=== PATIENT | male | born 1975 | race Caucasian/White ===

== ENCOUNTER 2025-03-30 03:20 | Day surgery (SDC) | payer OTHER, SELFPAY ==
[2025-03-28 15:05] VITALS: BMI 32.5
--- OUTSIDE RECORDS SUMMARY | 2025-03-30 03:24 | XMS_ITS | Continuity of Care Document ---
Author Name [facility] Organization [facility] Care Team Providers Care General Internal Medicine Doctor Name Role Phone [facility] Unavailable Unavailable Problems Combined list of problems from 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 It does not include entries that were removed or entered in error. Problem Status Onset Date Problem Type Date of Resolution Comments Source Flank pain Active 025 Diagnosis 6130C-Af[facility] Localized swelling, mass and lump, neck Active 025 Diagnosis -[facility] Other melanin hyperpigmentation Active 025 Diagnosis 5C[facility] Screening for malignant neoplasm of large intestine not done Active 025 Diagnosis 6[facility]C-Af[facility] Lipoma of head Active 025 Diagnosis 6[facility]C-Af[facility]C- [facility] Flank pain Active 025 Diagnosis 6130C-Af[facility]C- [facility] Dysphagia Active 025 Diagnosis 6130C-Af-C- [facility] Encounter for fitting and adjustment of spectacles and contact lenses Active 019 Condition DoD Keratoconus, stable, left eye Active 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 Member has completed no-go ground-testing of Ambien. Ambien 10 mg PO HS PRN, #5 issued, reviewed sleep hygiene and no-go policy Medication reconciled DoD CONJUNCTIVITIS ACUTE VERNAL Inactive Condition DoD SORE THROAT Inactive Condition DoD visit for: issue medical certificate Inactive Condition DoD EUSTACHIAN TUBE DYSFUNCTION Inactive Condition DoD OTITIS MEDIA ACUTE SEROUS RIGHT EAR Inactive Condition DoD OTITIS MEDIA RIGHT EAR Inactive Condition DoD VARICOCELE Active Condition DoD testicular pain Inactive Condition [facility] visit for: services physical pre-deployment Inactive Condition DoD ASTIGMATISM Active Condition DoD ORAL ALLERGY SYNDROME Inactive Condition DoD ANAPHYLAXIS - ADVERSE FOOD REACTION Inactive Condition DoD visit for: issue medical certificate fitness Inactive Condition DoD Anticipatory Guidance: Unsafe Sexual Practices Inactive Condition DoD ESOPHAGEAL REFLUX Active Condition DoD cough Inactive Condition DoD visit for: administrative purpose Inactive Condition DoD Patient Counseling: Inactive Condition Pt. education and counseling done DoD sore throat Inactive Condition recommen ded supportive care, use of medications as RX, avoid post nasal drip, call/return if sx.'s worsen DoD drip or drainage down throat from above Inactive Condition recommended supportive care, use of medications as RX, avoid post nasal drip, call/return if sx.'s worsen DoD NEOPLASM - SOFT TISSUE Inactive Condition DoD BRONCHITIS Inactive Condition viral vs bacterial; most sx resolving; given exposure to hospital will treat with abx. discussed hydration, rest, hand washing. entex and tessalon as rxed. RTC if noimprovement over 10 days. pt verbalizes udnerstanding. DoD MUSCLE SPASM Inactive Condition R trapeciuos/delto ids. Cyclobenzaprine DoD UPPER RESPIRATORY INFECTION Inactive Condition sx.'s improving -recommended supportive care, use of medications as RX, increase hydration and rest, call/return if sx.'s worsen DoD SINUSITIS Inactive Condition rx abx rx sudafed DoD PHARYNGITIS Inactive Condition DoD Overweight Inactive Condition advised w t. loss w/ diet control & exericises. monitor DoD Blood Pressure Isolated Elevated Inactive Condition Improved, Advised diet control, wt. loss, monitor & log in bp & s/sx's DoD ASTIGMATISM - REGULAR Active Condition DoD REFRACTIVE ERROR - MYOPIA Active Condition Acceptable CL a t last visit, and stable refraction showing decreased Rx. Rx given: OD -3.25/ -2.75 OS/8.6/14.0/Ultr aflex 2/Expires 1 year/2 week daily wear/No substitutions DoD Medications Combined list of outpatient medications from 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Medications provided include 1) outpatient medications from the last 15 months, and 2) patient-reported medications. Medication Details Route Status Patient Instructions Prescription Expires Prescription Number Last Dispense Date Ordering Provider Order Date Order Qty Source ALBUTEROL SULFATE HFA (albuterol sulfate), 90 MCG, HFA AER AD, INHALATION, [place], 8.5 g CANISTER ALBUTERO L SULFATE HFA (albuter ol sulfate) , 90 MCG, HFA AER AD, INHALATI ON, TEVA [place], 8.5 g CANISTER Start Date: 10/14/19 Stop Date: 05/14/21 Status: Complete d Repeat number: 1 Complet ed 05/14/20212020 No Facilit y Access amoxicillin -clavulanat e 875 mg-125 mg oral tablet 1 tab(s), Oral, every 12 hr, X 5 days, # 10 tab(s), 0 total refill(s ), Acute, 05/19/21 12:07:00 PM CDT, [facility]acy : [facility] Oral (given by mouth) Complet ed 05/19/2021 2020 10.0 0006C-[employer] Janette Parkinson [facility] azithromyci n 250 mg oral tablet 0 total refill(s ) Complet ed 05/14/20212020 No Facilit y Access clobetasol 0.05% topical foam 1 appl(s), Topical, Daily, # 110 g, 1 total refill(s ), [facility], Pharmacy : [facility] #[id number] Topica l (on the skin) Ordered 2023 110.0 6130C-A f-C-[facility] Jovanni cyclobenzap rine 10 mg oral tablet cycloben zaprine 10 mg oral tablet Start Date: 11/25/19 Stop Date: 05/14/21 Status: Complete d Repeat number: 1 Complet ed 05/14/20212020 No Facilit y Access cyclobenzap rine 5 mg oral tablet 1 tab(s), Oral, TID, PRN pain (moderat e), # 15 tab(s), 0 total refill(s ), Acute, Pharmacy : [facility] Oral (given by mouth) Complet ed 12/06/2024 04/15/202 4 2024 15.0 0055C-3 [facility] Jovanni cyclobenzap rine 5 mg oral tablet 1 tab(s), Oral, every day at bedtime, X 14 days, # 14 tab(s), 0 total refill(s ), Acute, Pharmacy : [facility] Oral (given by mouth) Ordered 04/04/20252024 14.0 6130C-A f[facility] Flexeril 5 mg oral tablet 1 tab(s), Oral, every day at bedtime, # 14 tab(s), 0 total refill(s ), Acute, Pharmacy : [facility] Oral (given by mouth) Complet ed 01/31/20252024 14.0 6130C[facility] f[facility] ibuprofen 800 mg oral tablet 1 tab(s), Oral, TID, PRN pain (moderat e), # 90 tab(s), 1 total refill(s ), Acute, 12/06/24 12:00:00 AM CDT, Pharmacy : [facility] Oral (given by mouth) Complet ed 12/06/2024 4 2024 90.0 0055C[facility]% topical patch 1 patch(es ), Topical, Daily, Leave on for up to 12 hours within a 24 hour period (12 hours on, 12 hours off). Can cut in half and apply to both flanks., # 30 patch(es ), 0 total refill(s ), Maintena ine, Pharmacy : [facility] Topica l (on the skin) Ordered 5 2024 30.0 6130C-A f-C-375 [facility] Jovanni phenylephri ne 10 mg oral tablet 1 tab(s), Oral, every 4 hr, PRN congesti on, # 18 tab(s), 0 total refill(s ), Acute, [facility] : [facility] Oral (given by mouth) Complet ed 05/21/20212020 18.0 [facility] mg oral delayed release tablet 1 tab(s), Oral, Daily, # 90 tab(s), 3 total refill(s ), [id number] Oral (given by mouth) Discont inued 01/17/20252024 90.0 6130C-A f-C-375 Th Med[facility]- [place] Protonix 40 mg oral delayed release tablet 1 tab(s), Oral, Daily, # 90 tab(s), 3 total refill(s ), [facility], Pharmacy : [facility] Oral (given by mouth) Ordered 5 2024 90.0 6130C-A f-C-375 Th Medgrp- [place]ovanni pseudoephed rine 30 mg tablet See Rx Instruct ions, # 24 EA, 0 total refill(s ), Hard Stop Complet ed 05/14/2022 1 2021 24.0 Ambulat ory Pharmac y Allergies, Adverse Reactions, Alerts Combined list of allergies from 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 It does not include entries that were removed or entered in error. Substance Category Reaction Severity Reaction type Status Date Reported Comments Source AVOCADO (DO NOT USE, NOT SCREENED) (FLAVORING AGENTS) Food allergy (disorder) Facial swelling active [facility] Avocados Drug allergy Active swelling of throat lips face Ambulatory Pharmacy BANANA (BANANA) Food allergy (disorder) Facial swelling active [address] [place] [address] Bananas Drug allergy Active swelling throat, lips face Ambulatory Pharmacy Immunizations Combined list of available immunizations from the 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 Immunization Series Date Given Administered By Site Reaction Lot Number CVX Code Drug Felt Carbonizer Status Comments Source Influenza, injectable, quadrivalent, preservative free 1 2021 Unknown, Provider [id number] Suleiman Christy (SKB) complet ed Influenza , injectabl e, quadrival ent, preservat jamila free [facility] influenza, injectable, quadrivalent, preservative free 2020 NOUVION, () Not Given influenza , injectabl e, quadrival ent, preservat jamila free [facility] influenza, injectable, quadrivalent- pf 2018 zzLef t Arm [id number] 150 Seqirus complet ed influenza , injectabl e, quadrival ent-pf 06/10/19 Given Ambulat ory Pharmac y Influenza, injectable, quadrivalent, preservative free 1 2018 Unknown, Provider [id number] 150 Seqirus (SEQ) complet ed Influenza , injectabl e, quadrival ent, preservat jamila free DoD influenza, injectable, quadrivalent- pf 2016 [id number] 150 GlaxoSmithKli ne complet ed influenza , injectabl e, quadrival ent-pf 06/19/17 Given Ambulat ory Pharmac y Influenza, injectable, quadrivalent, preservative free 21 2016 [id number] 150 SmithKline (SKB) complet ed Influenza , injectabl e, quadrival ent, preservat jamila free DoD anthrax vaccine 2016 [id number] Emergent Biosolutions complet ed anthrax vaccine 01/27/17 Given Ambulat ory Pharmac y anthrax vaccine 11 2016 [id number] 24 [employer] [place] (MIP) complet ed anthrax vaccine DoD influenza, seasonal, injectable-pf 2015 [id number] 140 Seqirus complet ed influenza , seasonal, injectabl e-pf 05/21/16 Given Ambulat ory Pharmac y Influenza, seasonal, injectable, preservative free 20 2015 [id number] 140 Seqirus (SEQ) comple t ed Influenza , seasonal, injectabl e, preservat jamila free DoD anthrax vaccine 2015 [id number] 24 Emergent Biosolutions complet ed anthrax vaccine 10/26/15 Given Ambulat ory Pharmac y anthrax vaccine 10 2015 [id number] 24 [employer] Sha (MIP) complet ed anthrax vaccine DoD influenza, live, intranasal,qu adrivalent 2014 [id number] 149 MediGozentune Inc comple t ed influenza , live, intranasa l,quadriv alent 06/11/15 Given Ambulat ory Pharmac y influenza, live, intranasal, quadrivalent 19 2014 [id number] 149 H[employer]. (MED) complet ed influenza , live, intranasa l, quadrival ent DoD anthrax vaccine 2014 [id number] 24 Emergent Biosolutions complet ed anthrax vaccine 09/22/14 Given Ambulat ory Pharmac y anthrax vaccine 9 2014 [id number] 24 [employer] [place] ([facility]) complet ed anthrax vaccine DoD influenza, injectable, quadrivalent- pf 2013 [id number] 150 ID Biomedical comple t ed influenza , injectabl e, quadrival ent-pf 06/15/14 Given Ambulat ory Pharmac y Influenza, injectable, quadrivalent, preservative free 0 2013 [id number] 150 (IDB) complet ed Influenza , injectabl e, quadrival ent, preservat jamila free DoD typhoid Vi capsular polysaccharid e vac 2013 [id number] 101 sanofi pasteur complet ed typhoid Vi capsular polysacch aride vac 01/20/14 Given Ambulat ory Pharmac y typhoid Vi capsular polysaccharid e vaccine 1 2013 [id number] 101 Sanofi Pasteur (PMC) complet ed typhoid Vi capsular polysacch aride vaccine DoD anthrax vaccine 2013 [id number] 24 Emergent Biosolutions complet ed anthrax vaccine 09/13/13 Given Ambulat ory Pharmac y anthrax vaccine 8 2013 [id number] 24 Emergent BioDefense [facility] ([facility]) complet ed anthrax vaccine DoD measles, mumps and rubella virus vaccine 0 2012 03 () Not Given measles, mumps and rubella virus vaccine DoD influenza, seasonal, injectable-pf 2012 [id number] 140 sanofi pasteur complet ed influenza , seasonal, injectabl e-pf 05/19/13 Given Ambulat ory Pharmac y Influenza, seasonal, injectable, preservative free 17 2012 [id number] 140 Sanofi Pasteur (PMC) complet ed Influenza , seasonal, injectabl e, preservat jamila free DoD anthrax vaccine 2011 [id number] Emergent Biosolutions complet ed anthrax vaccine 08/09/12 Given Ambulat ory Pharmac y anthrax vaccine 7 2011 [id number] 24 [employer] [place] ([facility]) complet ed anthrax vaccine DoD influenza, seasonal, injectable 2011 [id number] 141 CSL Behring complet ed influenza , seasonal, injectabl e 06/07/12 Given Ambulat ory Pharmac y Influenza, seasonal, injectable 16 2011 [id number] 141 [facility] [employer]at[employer]lectric [employer] Inc[employer] (CSL) complet ed Influenza , seasonal, injectabl e DoD typhoid Vi capsular polysaccharid e vac 2011 [id number] 101 sanofi pasteur complet ed typhoid Vi capsular polysacch aride vac 01/19/12 Given Ambulat ory Pharmac y typhoid Vi capsular polysaccharid e vaccine 6 2011 [id number] 101 Sanofi Pasteur (PMC) complet ed typhoid Vi capsular polysacch aride vaccine DoD tetanus, diphtheria, acellular pertu is 2010 [id number] 115 GlaxEverPowerithKli ne complet ed tetanus, diphtheri a, acellular pertussis 07/31/11 Given Ambulat ory Pharmac y anthrax vaccine 2010 [id number] 24 Emergent Biosolutions complet ed anthrax vaccine 07/31/11 Given Ambulat ory Pharmac y anthrax vaccine 6 2010 [id number] 24 [employer] [place] (MIP) complet ed anthrax vaccine DoD tetanus toxoid, reduced diphtheria toxoid, and acellular pertu is vaccine, adsorbed 0 2010 [id number] 4AA 115 [employer] (SKB) complet ed tetanus toxoid, reduced diphtheri a toxoid, and acellular pertussis vaccine, adsorbed DoD influenza virus vaccine, live 2010 [id number] 111 GreenElectric Power Corpune Inc comple t ed influenza virus vaccine, live 06/18/11 Given Ambulat ory Pharmac y influenza virus vaccine, live, attenuated, for intranasal use 1 2010 [id number] 111 HITbills, Inc. (MED) complet ed influenza virus vaccine, live, attenuate d, for intranasa l use DoD hepatitis B adult vaccine 2010 [id number] 5BA 43 GlaxoSmithKli ne complet ed hepatitis B adult vaccine 12/01/10 Given Ambulat ory Pharmac y hepatitis B vaccine, adult dosage 3 2010 [id number] 5BA 43 Distilline (SKB) complet ed hepatitis B vaccine, adult dosage DoD anthrax vaccine 2009 [id number] 24 Emergent Biosolutions complet ed anthrax vaccine 07/16/10 Given Ambulat ory Pharmac y anthrax vaccine 5 2009 [id number] 24 [employer] [place] (MIP) complet ed anthrax vaccine DoD hepatitis B adult vaccine 2009 43 GlaxoSmithKli ne complet ed hepatitis B adult vaccine 06/26/10 Given Ambulat ory Pharmac y hepatitis B vaccine, adult dosage 2 2009 43 SmithKline (SKB) complet ed hepatitis B vaccine, adult dosage DoD hepatitis B adult vaccine 2009 [id number] 5AA 43 GlaxoSmithKli ne complet ed hepatitis B adult vaccine 05/23/10 Given Ambulat ory Pharmac y hepatitis B vaccine, adult dosage 1 2009 [id number] [id number] 43 SmithKline (SKB) complet ed hepatitis B vaccine, adult dosage DoD influenza virus vaccine,split 2009 [id number] 15 CSL Behring complet ed influenza virus vaccine,s plit 05/21/10 Given Ambulat ory Pharmac y influenza virus vaccine, split virus (incl. purified surface antigen)-reti red CODE 1 2009 [id number] 15 CSL [employer]otherapies, Inc. (CSL) complet ed influenza virus vaccine, split virus (incl. purified surface antigen)- retired CODE DoD yellow fever vaccine 2009 [id number] 37 sanofi pasteur complet ed yellow fever vaccine 01/23/10 Given Ambulat ory Pharmac y yellow fever vaccine 1 2009 [id number] 37 Sanofi Pasteur (PMC) complet ed yellow fever vaccine DoD meningococcal A,C,Y,W-135 (MCV4P) 2009 [id number] 114 sanofi pasteur complet ed meningoco ccal A,C,Y,W-1 35 (MCV4P) 01/09/10 Given Ambulat ory Pharmac y typhoid Vi capsular polysaccharid e vac 2009 [id number] 101 sanofi pasteur complet ed typhoid Vi capsular polysacch aride vac 01/09/10 Given Ambulat ory Pharmac y anthrax vaccine 2009 [id number] 24 Emergent Biosolutions complet ed anthrax vaccine 01/09/10 Given Ambulat ory Pharmac y anthrax vaccine 4 2009 [id number] 24 [employer] [place] (MIP) complet ed anthrax vaccine DoD typhoid Vi capsular polysaccharid e vaccine 1 2009 [id number] 101 Sanofi Pasteur ([facility]) complet ed typhoid Vi capsular polysacch aride vaccine DoD meningococcal polysaccharid e (groups A, C, Y and W-135) diphtheria toxoid conjugate vaccine (MCV4P) 1 2009 [id number] 114 Sanofi Pasteur ([facility]) complet ed meningoco ccal polysacch aride (groups A, C, Y and W-135) diphtheri a toxoid conjugate vaccine (MCV4P) DoD Novel Influenza-H1N 1-09,live virus,nasal 2009 [id number] 125 Medimmune Inc comple t ed Novel Influenza -H4L6-11, live virus,[place] al 10/05/09 Given Ambulat ory Pharmac y Novel Influenza-H1N 1-09, live virus for nasal administratio n 1 2009 [id number] 125 MedIGozentune, Inc. (MED) complet ed Novel Influenza -I6W6-43, live virus for nasal administr ation DoD influenza virus vaccine, live 2008 [id number] 111 Medimmune Inc comple t ed influenza virus vaccine, live 05/08/09 Given Ambulat ory Pharmac y influenza virus vaccine, live, attenuated, for intranasal use 1 2008 [id number] 111 MedImmune, Inc. (MED) complet ed influenza virus vaccine, live, attenuate d, for intranasa l use DoD influenza virus vaccine, live 2007 [id number] 111 Medimmune Inc comple t ed influenza virus vaccine, live 06/16/08 Given Ambulat ory Pharmac y influenza virus vaccine, live, attenuated, for intranasal use 1 2007 [id number] 111 MedImmune, Inc. (MED) complet ed influenza virus vaccine, live, attenuate d, for intranasa l use DoD influenza virus vaccine,split 2006 [id number] 15 GlaxoSmithKli ne complet ed influenza virus vaccine,s plit 06/22/07 Given Ambulat ory Pharmac y influenza virus vaccine, split virus (incl. purified surface antigen)-reti red CODE 1 2006 [id number] 15 SmithArchitexaine (SKB) complet ed influenza virus vaccine, split virus (incl. purified surface antigen)- retired CODE DoD influenza virus vaccine, live 2005 [id number] 111 Medimmune Inc comple t ed influenza virus vaccine, live 05/28/06 Given Ambulat ory Pharmac y influenza virus vaccine, live, attenuated, for intranasal use 1 2005 [id number] 111 HITbills, [facility] ([facility]) complet ed influenza virus vaccine, live, attenuate d, for intranasa l use [facility] tetanus-dipht h toxoids (Td) adult/adol 2005 [id number] 09 sanofi pasteur complet ed tetanus-d iphth toxoids (Td) adult/ado l 09/26/05 Given Ambulat ory Pharmac y tetanus and diphtheria toxoids, adsorbed, preservative free, for adult use (2 Lf of tetanus toxoid and 2 Lf of diphtheria toxoid) 1 2005 [id number] 09 Sanofi Pasteur ([facility]) complet ed tetanus and diphtheri a toxoids, adsorbed, preservat jamila free, for adult use (2 Lf of tetanus toxoid and 2 Lf of diphtheri a toxoid) [facility] influenza virus vaccine,split 2004 [id number] 15 sanofi pasteur complet ed influenza virus vaccine,s plit 07/14/05 Given Ambulat ory Pharmac y influenza virus vaccine, split virus (incl. purified surface antigen)-reti red CODE 1 2004 [id number] 15 Sanofi Pasteur ([facility]) complet ed influenza virus vaccine, split virus (incl. purified surface antigen)- retired CODE DoD influenza virus vaccine, live 2004 [id number] 111 Adapt TechnologiesKnomo [facility] t ed influenza virus vaccine, live 09/10/04 Given Ambulat ory Pharmac y influenza virus vaccine, live, attenuated, for intranasal use 0 2004 [id number] 111 HITbills, Inc. (MED) complet ed influenza virus vaccine, live, attenuate d, for intranasa l use DoD typhoid Vi capsular polysaccharid e vac 2003 [id number] 101 sanofi pasteur complet ed typhoid Vi capsular polysacch aride vac 08/09/04 Given Ambulat ory Pharmac y typhoid Vi capsular polysaccharid e vaccine 0 2003 [id number] 101 Sanofi Pasteur (PMC) complet ed typhoid Vi capsular polysacch aride vaccine DoD anthrax vaccine 2003 [id number] 24 Emergent Biosolutions complet ed anthrax vaccine 03/12/04 Given Ambulat ory Pharmac y anthrax vaccine 4 2003 [id number] 24 [employer] [place] ([facility]) complet ed anthrax vaccine DoD anthrax vaccine 2003 [id number] 24 Emergent Biosolutions complet ed anthrax vaccine 10/09/03 Given Ambulat ory Pharmac y anthrax vaccine 3 2003 [id number] 24 [employer] Sha ([facility]) complet ed anthrax vaccine DoD anthrax vaccine 2003 [id number] 24 Emergent Biosolutions complet ed anthrax vaccine 09/22/03 Given Ambulat ory Pharmac y anthrax vaccine 2 2003 [id number] 24 [employer] [place] ([facility]) complet ed anthrax vaccine DoD anthrax vaccine 2003 [id number] 24 Emergent Biosolutions complet ed anthrax vaccine 09/04/03 Given Ambulat ory Pharmac y anthrax vaccine 1 2003 [id number] 24 [employer] Sha ([facility]) complet ed anthrax vaccine DoD vaccinia (smallpox) vaccine 2002 [id number] 75 ugichem [facility] complet ed vaccinia (smallpox ) vaccine 08/21/03 Given Ambulat ory Pharmac y vaccinia (smallpox) vaccine 0 2002 [id number] 75 [facility] ([facility]) complet ed vaccinia (smallpox ) vaccine DoD influenza virus vaccine, whole virus 2002 [id number] 16 sanofi pasteur complet ed influenza virus vaccine, whole virus 06/22/03 Given Ambulat ory Pharmac y influenza virus vaccine, whole virus 0 2002 [id number] 16 Sanofi Pasteur ([facility]) complet ed influenza virus vaccine, whole virus DoD typhoid vaccine, inactivated 2001 [id number] 101 sanofi pasteur complet ed typhoid vaccine, inactivat ed 08/12/02 Given Ambulat ory Pharmac y typhoid vaccine, parenteral, other than acetone-kille d, dried 0 2001 [id number] 41 Sanofi Pasteur ([facility]) complet ed typhoid vaccine, parentera l, other than acetone-k illed, dried [facility] influenza virus vaccine, whole virus 2001 [id number] 16 sanofi pasteur complet ed influenza virus vaccine, whole virus 07/14/02 Given Ambulat ory Pharmac y influenza virus vaccine, whole virus 0 2001 [id number] 16 Sanofi Pasteur ([facility]) complet ed influenza virus vaccine, whole virus DoD influenza virus vaccine, whole virus 2001 [id number] 16 sanofi pasteur complet ed influenza virus vaccine, whole virus 09/24/01 Given Ambulat ory Pharmac y influenza virus vaccine, whole virus 0 2001 [id number] 16 Sanofi Pasteur ([facility]) complet ed influenza virus vaccine, whole virus DoD varicella virus vaccine 2000 [id number] 21 Merck & Company Inc complet ed varicella virus vaccine 03/18/01 Given Ambulat ory Pharmac y varicella virus vaccine 2 2000 [id number] 21 Merck (MSD) complet ed varicella virus vaccine DoD varicella virus vaccine 2000 [id number] 21 Merck & Company Inc complet ed varicella virus vaccine 01/19/01 Given Ambulat ory Pharmac y tuberculin purified protein derivative 2000 zzLef t Arm [id number] Unknown complet ed Patient Tolerance : Negative Ambulat ory Pharmac y meningococcal polysaccharid e (MPSV4) 2000 [id number] sanofi pasteur complet ed meningoco ccal polysacch aride (MPSV4) 01/19/01 Given Ambulat ory Pharmac y varicella virus vaccine 1 2000 [id number] 21 Merck (MSD) complet ed varicella virus vaccine DoD meningococcal polysaccharid e vaccine (MPSV4) 0 2000 [id number] Sanofi Pasteur ([facility]) complet ed meningoco ccal polysacch aride vaccine (MPSV4) DoD tuberculin skin test; purified protein derivative solution, intradermal 2 2000 Unknown, Provider [id number] Other ([facility]) complet ed tuberculi n skin test; purified protein derivativ e solution, intraderm al DoD influenza virus vaccine, whole virus 2000 [id number] 16 [facility] complet ed influenza virus vaccine, whole virus 09/22/00 Given Ambulat ory Pharmac y influenza virus vaccine, whole virus 0 2000 [id number] 16 [facility] ([facility]) complet ed influenza virus vaccine, whole virus DoD tuberculin purified protein derivative 1999 zzLef t Arm 96 complet ed Patient Tolerance : Negative Ambulat ory Pharmac y typhoid vaccine, inactivated 1999 [id number] 101 [facility] complet ed typhoid vaccine, inactivat ed 11/06/99 Given Ambulat ory Pharmac y typhoid vaccine, parenteral, other than acetone-kille d, dried 0 1999 [id number] 41 [facility] (CON) complet ed typhoid vaccine, parentera l, other than acetone-k illed, dried DoD tuberculin skin test; purified protein derivative solution, intradermal 1 1999 Unknown, Provider 96 () complet ed tuberculi n skin test; purified protein derivativ e solution, intraderm al [facility] influenza virus vaccine, whole virus 1998 [id number] 16 [facility] complet ed influenza virus vaccine, whole virus 06/28/99 Given Ambulat ory Pharmac y influenza virus vaccine, whole virus 0 1998 [id number] 16 [facility] (CON) complet ed influenza virus vaccine, whole virus DoD influenza virus vaccine, whole virus [id number] [facility] complet ed influenza virus vaccine, whole virus 07/01/98 Given Ambulat ory Pharmac y influenza virus vaccine, whole virus 0 [id number] 16 [facility] ([place]active) ([place]) complet ed influenza virus vaccine, whole virus DoD influenza virus vaccine, whole virus 1996 16 complet ed influenza virus vaccine, whole virus 06/29/97 Given Ambulat ory Pharmac y influenza virus vaccine, whole virus 0 1996 16 () complet ed influenza virus vaccine, whole virus DoD hepatitis A adult vaccine 1996 52 complet ed hepatitis A adult vaccine 01/02/97 Given Ambulat ory Pharmac y hepatitis A vaccine, adult dosage 2 1996 52 () complet ed hepatitis A vaccine, adult dosage DoD typhoid, parenteral, AKD 1995 53 complet ed typhoid, parentera l, AKD 08/08/96 Given Ambulat ory Pharmac y typhoid vaccine, parenteral, acetone-kille d, dried ([place] ) 1 1995 53 () complet ed typhoid vaccine, parentera l, acetone-k illed, dried ([place] ) DoD hepatitis A adult vaccine 1995 52 complet ed hepatitis A adult vaccine 05/27/96 Given Ambulat ory Pharmac y yellow fever vaccine 1995 37 complet ed yellow fever vaccine 05/27/96 Given Ambulat ory Pharmac y yellow fever vaccine 0 1995 37 () complet ed yellow fever vaccine DoD hepatitis A vaccine, adult dosage 1 1995 52 () complet ed hepatitis A vaccine, adult dosage DoD measles and rubella virus vaccine 1995 04 complet ed measles and rubella virus vaccine 10/02/95 Given Ambulat ory Pharmac y poliovirus vaccine, live, oral 1995 02 complet ed polioviru s vaccine, live, oral 10/02/95 Given Ambulat ory Pharmac y trivalent poliovirus vaccine, live, oral 0 1995 02 () complet ed trivalent polioviru s vaccine, live, oral DoD measles and rubella virus vaccine 0 1995 04 () complet ed measles and rubella virus vaccine DoD tetanus-dipht h toxoids (Td) adult/adol 1995 09 complet ed tetanus-d iphth toxoids (Td) adult/ado l 09/25/95 Given Ambulat ory Pharmac y meningococcal polysaccharid e (MPSV4) 1995 32 complet ed meningoco ccal polysacch aride (MPSV4) 09/25/95 Given Ambulat ory Pharmac y tetanus and diphtheria toxoids, adsorbed, preservative free, for adult use (2 Lf of tetanus toxoid and 2 Lf of diphtheria toxoid) 0 1995 09 () complet ed tetanus and diphtheri a toxoids, adsorbed, preservat jamila free, for adult use (2 Lf of tetanus toxoid and 2 Lf of diphtheri a toxoid) DoD meningococcal polysaccharid e vaccine (MPSV4) 0 1995 32 () complet ed meningoco ccal polysacch aride vaccine (MPSV4) DoD Vital Signs Combined list of inpatient and outpatient Vital Signs from Department of Defense and Veterans Affairs, ranging from 12 months to all on record, depending upon the facility. Vital Sign Value Date Comments Source Systolic Blood Pressure 143 mm[Hg] 05/14/20 21 16:50:00 0006[facility] Diastolic Blood Pressure 86 mm[Hg] 021 16:50:[address] [place] [address] Mean Arterial Pressure, Cuff (Calc) 105 mm[Hg] 05/14/2021 16:50:[address] [place] [address] Peripheral Pulse Rate 86 bpm 07/01/2021 22:13:[address] [place] [address] Temperature Oral 37.1 Freda 07/01/2021 22:13:[address] [place] [address] BP Site Right arm 07/01/2021 22:13:[address] [place] [address] Respiratory Rate 16 br/min 07/01/2021 22:13:[address] [place] [address] Mean Arterial Pressure, Cuff (Calc) 97 mm[Hg] 07/01/2021 22:13:[address] [place] [address] Blood Pressure Manual Automatic 07/01/2021 22:13:[address] [place] [address] Systolic Blood Pressure 131 mm[Hg] 07/01/20 21 22:13:[address] [place] [address] Diastolic Blood Pressure 80 mm[Hg] 021 22:13:[address] [place] [address] Respiratory Rate 18 br/min 07/06/2024 16:28:00 9789V-Qy-B-[facility] Temperature Oral 36.5 Freda 07/06/2024 16:28:00 1692D-Yi-V-[facility] Systolic Blood Pressure 126 mm[Hg] 07/06/20 24 16:28:00 2154Y-Rh-J-[facility] Diastolic Blood Pressure 79 mm[Hg] 024 16:28:00 4821H-Rv-V-[facility] Mean Arterial Pressure, Cuff (Calc) 95 mm[Hg] 07/06/2024 16:28:00 8962Y-Qg-B-[facility] Peripheral Pulse Rate 74 bpm 07/06/2024 16:28:00 0965T-Pn-X-[facility] Mean Arterial Pressure, Cuff (Calc) 92 mm[Hg] 12/07/2023 13:08:00 0055C-[facility] Peripheral Pulse Rate 63 bpm 12/07/2023 13:08:00 0055C[facility] Respiratory Rate 14 br/min 12/07/2023 13:08:00 0055C-[facility] Temperature Oral 36.7 Freda 12/07/2023 13:08:00 0055C[facility] BP Site Left arm 12/07/2023 13:08:00 0055C-[facility] Blood Pressure Manual Automatic 12/07/2023 13:08:00 0055C[facility] Systolic Blood Pressure 121 mm[Hg] 12/07/19 13:08:00 0055C[facility] Diastolic Blood Pressure 77 mm[Hg] 024 13:08:00 0055C[facility] Blood Pressure Manual Automatic 01/17/2025 16:10:00 0950Z-Bj-Y-[facility] Systolic Blood Pressure 135 mm[Hg] 01/18/20 25 16:10:00 2685M-Mh-P-[facility] Diastolic Blood Pressure 95 mm[Hg] 025 16:10:00 6396S-Mv-M-[facility] Mean Arterial Pressure, Cuff (Calc) 108 mm[Hg] 01/17/2025 16:10:00 9460C-Zt-J-[facility] BP Site Right arm 01/17/2025 16:10:00 9589U-Oh-S-[facility] Peripheral Pulse Rate 60 bpm 01/17/2025 16:10:00 7269A-Kv-S-[facility] Respiratory Rate 16 br/min 01/17/2025 16:10:00 4992Z-Jy-X-[facility] Systolic Blood Pressure 120 mm[Hg] 08/08/20 24 16:55:00 8846V-Kq-N-[facility] Diastolic Blood Pressure 75 mm[Hg] 024 16:55:00 1822Q-Fm-G-[facility] BP Site Left arm 08/08/2024 16:55:00 0934B-Os-N-[facility] Blood Pressure Manual Automatic 08/08/2024 16:55:00 0427L-Rd-N-[facility] Peripheral Pulse Rate 60 bpm 08/08/2024 16:55:00 5156Y-Vf-Y-[facility] Mean Arterial Pressure, Cuff (Calc) 90 mm[Hg] 08/08/2024 16:55:00 6156F-Xc-Z-[facility] Blood Pressure Manual Automatic 05/14/2021 16:42:[address] [place] [address] BP Site Right arm 05/14/2021 16:42:[address] [place] [address] Temperature Oral 36.8 Freda 05/14/2021 16:42:[address] [place] [address] Respiratory Rate 14 br/min 05/14/2021 16:42:[address] [place] [address] Peripheral Pulse Rate 65 bpm 05/14/2021 16:42:[address] [place] [address] Mean Arterial Pressure, Cuff (Calc) 115 mm[Hg] 05/14/2021 16:42:[address] [place] [address] Systolic Blood Pressure 162 mm[Hg] 05/14/20 16:42:[address] [place] [address] Diastolic Blood Pressure 92 mm[Hg] 021 16:42:[address] [place] [address] Encounters Combined list of: 1) Encounters from Department of Veterans Affairs facilities going backup to the last 18 months, not all VA inpatient encounters are included; 2) Encounters from the Department of Defense facilities going backup to 280 months. Location Location Details Encounter Type Encounter Number Reason For Visit Attending Provider ADM Date DC Date Status Disposition Source [address] [place] [address](87 [facility]) OUTPATIENT [id number] eye exam PAU RUSH 05/13 Released w/o Limitations [address] [place] [address](8 [facility]) [address] [place] [address]( [facility]) OUTPATIENT [id number] refract ion PAU RUSH 05/27 Released w/o Limitations [facility] 7 [facility]) [facility](87 Family Prac Team 2) OUTPATIENT [id number] Diabete s screeni ng MIGUEL ANAND NMN 09/28 Released w/o Limitations [facility](8 7 Family Prac Team 2) [facility](87 Family Prac Team 2) OUTPATIENT [id number] f/u BP and DM bloodwo rk MIGUEL ANAND NMN 10/05 Released w/o Limitations [facility](8 7 Family Prac Team 2) [facility](87 Family Prac Team 2) OUTPATIENT [id number] PHA BABS SANTO S 11/30 Released w/o Limitations [facility](8 7 Family Prac Team 2) [facility](87 [facility]) OUTPATIENT [id number] cold symptom s x 3 weeks CASSIE VALDEZ 12/28 Sick at Home/Quarter s [facility](8 7 [facility]) [facility](87 [facility]) OUTPATIENT [id number] R neck pain started thursday has been getting worse, sinusti tis LORELEI MOLINA 01/25 Released w/o Limitations [facility](8 7 [facility]) [facility](87 Family Prac Team 2) OUTPATIENT [id number] ext-SHAZIA Ibrahim 06/09 Released w/o Limitations [facility](8 7 Family Prac Team 2) [facility](87 Family Prac Team 2) OUTPATIENT [id number] growth CLAUDETTE AVILA 06/22 Released w/o Limitations [facility](8 7 Family Prac Team 2) [facility](87 Family Prac Team 1) OUTPATIENT [id number] ext cold MIGUEL ANAND NMN 11/03 Released w/o Limitations [facility](8 7 Family Prac Team 1) [facility](87 [facility]) OUTPATIENT [id number] eye exam ENRRIQUE ROBISON 11/25 Released w/o Limitations [facility](8 7 [facility]) [facility](87 Family Prac Team 1) OUTPATIENT [id number] pha RUSLAN MAKI 12/01 Released w/o Limitations [facility](8 7 Family Prac Team 1) [facility](87 Flight Physicals ) OUTPATIENT [id number] EARNEST TAYLOR 06/14 Released w/o Limitations [employer](8 7 Flight Physica ls) [facility](87 Flight Medicine) OUTPATIENT [id number] cardiol ogy refer CELINA Patel 08/15 Released w/o Limitations [facility](8 7 Flight Medicin e) [facility](87 [facility]) OUTPATIENT [id number] eye exam AAMIRSERENA MARLEY W 09/21 Released w/o Limitations [facility](8 7 Opt[facility]) [facility](87 Family Prac Team 1) OUTPATIENT [id number] chest cold TOYA LIN L 10/11 Released w/o Limitations [facility](8 7 Family Prac Team 1) [facility](87 Family Prac Team 2) TELE CONSULT [id number] Lab Results Needed/ RUTHANN Stephen 10/11 [facility](8 7 Family Prac Team 2) [facility](87 Family Prac Team 2) OUTPATIENT [id number] f/u severe cough AMNIAH BARNES 11/02 Released w/o Limitations [facility](8 7 Family Prac Team 2) [facility](87 Flight Medicine) OUTPATIENT [id number] flight clearan CELINA Centeno L 05/09 Released w/o Limitations [facility](8 7 Flight Medicin e) [facility](87 Flight Medicine) OUTPATIENT [id number] contact lense program MARCO GUERRA 05/09 Released w/o Limitations [facility](8 7 Flight Medicin e) [facility](87 Flight Medicine) OUTPATIENT [id number] rtfs MARCO GUERRA 05/14 Released w/o Limitations [facility](8 7 Flight Medicin e) [facility](87 [facility]) OUTPATIENT [id number] initial aclp ALINA WALTERS Y 05/28 Released w/o Limitations [facility](8 7 [facility]) [facility](87 [facility]) OUTPATIENT [id number] 1wk aclp chk ALINA WALTERS Y 06/07 Released w/o Limitations [employer] [facility](8 7 [facility]) [employer](87 Flight Medicine) OUTPATIENT [id number] sinus infecti on KRISTINA ORTIZ 09/24 Released with Work/Duty Limitations [employer](8 7 Flight Medicin e) [employer](87 Flight Medicine) OUTPATIENT [id number] rtfs CELINA BAÑUELOS 09/26 Released w/o Limitations [employer](8 7 Flight Medicin e) [employer](87 [facility] Physicals ) OUTPATIENT [id number] flyers pha MARCO GUERRA 10/05 Released w/o Limitations [employer](8 7 Flight Physica ls) [employer]([facility] C Flight Medicine [facility]) OUTPATIENT [id number] [facility] SHANTAL MARY 01/01 Released w/o Limitations [employer]([facility] Flight Medicin e [facility] Clin) [employer]([facility] C Flight Medicine [facility]) TELE CONSULT [id number] Pt needs to start contact lens SAMMY Chowdary 01/16 Referred for Appointment [employer]([facility] Flight Medicin e [facility] Clin) [employer]([facility] C Allergy) OUTPATIENT [id number] vs, pft, then see Allergi ELIAZAR Milan 03/06 Released w/o Limitations [employer]([facility] Allergy ) [employer]([facility] C Optometry ) OUTPATIENT [id number] initial cl prgrm JARED KAT 03/07 Released w/o Limitations [employer]([facility] Optomet ry) [employer]([facility] C Optometry ) OUTPATIENT [id number] cl's ck program JARED KAT 03/20 Released w/o Limitations [employer]([facility] Optomet ry) [employer]([facility] C Optometry ) OUTPATIENT [id number] *JORGE A Mata 04/30 Released w/o Limitations [employer]([facility] Optomet ry) [employer]([facility] C Neuropsyc hological Assess) OUTPATIENT [id number] SHANA BUCIO 05/21 Released w/o Limitations [employer]([facility] Neurops ycholog ical Assess) [employer]([facility] Flight Medicine [facility]) OUTPATIENT [id number] GO PILLS JOSUE MALICK Elliott 05/31 Released w/o Limitations [employer]([facility] Flight Medicin e [facility] Clin) [employer]([facility] Flight Medicine [facility]) OUTPATIENT [id number] RTFS MALICK SALAS 06/04 [employer]([facility] Flight Medicin e PC[facility] Clin) Theater Facility OUTPATIENT [id number] 06/13 Released w/o Limitations Theater Facilit y [employer]([facility] Optometry ) OUTPATIENT [id number] 6 month cl's ck flyer JARED KAT 09/26 Released w/o Limitations [employer]([facility] Optomet ry) [employer]([facility] Flight Medicine [facility]) OUTPATIENT [id number] SUREKHA BONILLA 10/23 Released w/o Limitations [employer]([facility] Flight Medicin e [facility]) [facility] OUTPATIENT [id number] 11/02 Released w/o Limitations [facility] OUTPATIENT [id number] 12/01 Released w/o Limitations Theater Facilit y [employer]([facility] Flight Medicine PC[facility] Clin) OUTPATIENT [id number] testicu lar SHI Collins 01/29 Released w/o Limitations [employer]([facility] Flight Medicin e PC[facility] Clin) [employer]([facility] Flight [facility] [id number] ultra sound fol up SHI RIGGS 02/19 Released w/o Limitations [employer]([facility] Flight Medicin e PC[facility] Clin) [employer]([facility] Urology Clinic) OUTPATIENT [id number] VARICOC SHAZIA MCCONNELL 03/18 Released w/o Limitations [employer]([facility] Urology Clinic) [employer]([facility] C Optometry ) OUTPATIENT [id number] cl fup JARED KAT 04/14 Released w/o Limitations [employer]([facility] Optomet ry) [employer]([facility] C Optometry ) OUTPATIENT [id number] *gmi order PRIYA OLIVARES 08/28 Released w/o Limitations [employer]([facility] Optomet ry) [employer]([facility] C Flight Medicine [facility]) OUTPATIENT [id number] predepl tita PATELJERMAINE Vernon 09/03 Released w/o Limitations [employer](D [facility] Flight Medicin e [facility] Clin) [employer]([facility] C Flight Medicine [facility]) OUTPATIENT [id number] headcol SHI Pop 09/19 Released w/o Limitations [employer](D C Flight Medicin e [facility]) [employer]([facility] C Flight Medicine [facility]) OUTPATIENT [id number] rtfs SUREKHA ALAN 09/22 Released w/o Limitations [employer](D C Flight Medicin e [facility]) [employer]([facility] C Flight Medicine [facility]) OUTPATIENT [id number] ear pressur e SHI RIGGS 10/01 Released w/o Limitations [employer]([facility] Flight Medicin e [facility] Clin) [employer]([facility] C Flight Medicine [facility]) OUTPATIENT [id number] r ear blockag e was seen by Dr Agustin kang last week for same concern SHI RIGGS 10/06 Released w/o Limitations [employer](D C Flight Medicin e [facility]) [employer]([facility] C Otorhinol aryngolog y) OUTPATIENT [id number] Ear proc SERENA BETTS 10/06 Released w/o Limitations [employer]([facility] Otorhin olaryng ology) [employer]([facility] C Flight Medicine [facility]) OUTPATIENT [id number] [facility] ent DERRICK Leo 10/07 Released w/o Limitations [employer](D C Flight Medicin e [facility] Clin) [employer]([facility] C Flight Medicine [facility]) OUTPATIENT [id number] rtfs TITO MIR 10/14 Released w/o Limitations [employer](D [facility]) [employer]([facility] C Flight Medicine [facility]) OUTPATIENT [id number] RTFS CLARKE TITO S 10/17 Released w/o Limitations [employer](D C Flight Medicin e [facility] Clin) [employer]([facility] C Optometry ) OUTPATIENT [id number] CCT MIKY QUINTANILLACECILE Tyler 10/29 Released w/o Limitations [employer]([facility] Optomet ry) [employer]([facility] C [facility]) OUTPATIENT [id number] JERMAINE GARAY 10/29 Released w/o Limitations [employer]([facility] Flight Medicin e [facility] Clin) [employer]([facility] C Flight Medicine [facility]) OUTPATIENT [id number] short notice predepl oyment EVARISTO SOTO 11/04 Released w/o Limitations [employer]([facility] Flight Medicin e [facility]) [facility] OUTPATIENT [id number] 12/15 Released w/o Limitations Theater [facility] OUTPATIENT [id number] 01/14 Released w/o Limitations Theater [facility] OUTPATIENT [id number] 01/18 Released w/o Limitations Theater Facilit y [employer]([facility] C Optometry ) OUTPATIENT [id number] JARED KAT 03/26 Released w/o Limitations [employer]([facility] Optomet ry) [employer]([facility] C Flight Medicine [facility]) OUTPATIENT [id number] PRE DEPLOYM CORBIN CHAVIS 04/06 Released w/o Limitations [employer]([facility] Flight Medicin e [facility] Clin) Theater Facility OUTPATIENT [id number] Theater Provider 06/07 Released w/o Limitations Theater Facilit y [employer]([facility] C Deploymen t Medicine) OUTPATIENT [id number] DHAENRRIQUE CARROLL 09/23 Released w/o Limitations [employer](D C Deploym ent Medicin e) [employer]([facility] C Flight Medicine [facility]) OUTPATIENT [id number] Allergi es/Sore Throat CORBIN ARREGUIN 10/19 Released w/o Limitations [employer]([facility] Flight Medicin e PC[facility] Clin) [employer]([facility] Flight Medicine [facility] Clin) OUTPATIENT [id number] PHA/no waiver/ no labs/sh ow 1400 SCHUYLER NOVA S 11/22 Released w/o Limitations [employer]([facility] Flight Medicin e PC[facility] Clin) [employer]([facility] Optometry ) OUTPATIENT [id number] Contact Lens VALERIE LANDAVERDE Vernon 04/28 Released w/o Limitations [employer]([facility] Optomet ry) [employer]([facility] Neuropsy hological Assess) OUTPATIENT [id number] predepl oyment flyer DONALDOFREDALORRI A 07/28 Released w/o Limitations [employer]([facility] Neurops ycholog ical Assess) [employer]([facility] Flight [facility] Clin) OUTPATIENT [id number] Last minute Pre-dep loyment LEAH SAUCEDO 08/03 Released w/o Limitations [employer]([facility] Flight Medicin e [facility] Clin) Theater Facility OUTPATIENT [id number] Theater Provider 08/12 Released w/o Limitations Theater Facilit y [employer]([facility] Flight [facility]) TELE CONSULT [id number] Notes Entered by: Monse DE LA VEGA 06 Oct 2013 1234 ------- ------- ------- ------- -- Urology CORBIN Harvey 10/06 [employer]([facility] Flight Medicin e [facility] Clin) [employer]([facility] Urology Clinic) OUTPATIENT [id number] Notes Entered by: BRITTANY GUTIERREZ 01 Nov 2013 1330 ------- ------- ------- ------- -- 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 BRITTANY Bull 11/01 Released w/o Limitations [employer]([facility] Urology Clinic) [employer]([facility] C Flight Medicine [facility]) OUTPATIENT [id number] PHA/+gl asses/+ SCLP/-w aiver/l abs ordered VALERIE SAENZ 12/05 Released w/o Limitations [employer]([facility] Flight Medicin e [facility] Clin) [employer]([facility] Urology Clinic) TELE CONSULT [id number] Notes Entered by: BRITTANY GUTIERREZ 20 Dec 2013 1147 ------- ------- ------- ------- -- Pt request ing valium for vas 22 december BRITTANY GUTIERREZ 12/20 Medication Refill Forwarded [employer]([facility] Urology Clinic) [facility] [facility] Urology Clinic) OUTPATIENT [id number] COLTON Syed 12/22 Released w/o Limitations [employer]([facility] Urology Clinic) [employer]([facility] Clin) OUTPATIENT [id number] Notes Entered by: MARCY NOYOLA 30 Dec 2013 0732 ------- ------- ------- ------- -- HEIDE WASHBURN 12/30 Released w/o Limitations [employer]([facility] Flight Medicin e PCMH Clin) [employer]([facility]) OUTPATIENT [id number] Notes Entered by: CHEPE ARREGUIN 20 Jan 2014 1257 ------- ------- ------- ------- -- CORBIN MIRZA 01/20 Released w/o Limitations [employer]([facility] Flight Medicin e PCMH Clin) [employer]([facility]) OUTPATIENT [id number] 38 y/o/m c/o back pain MALICK RIVAS 03/24 Released with Work/Duty Limitations [employer]([facility] Flight Medicin e PCMH Clin) [facility]) TELE CONSULT [id number] Notes Entered by: MALICK RIVAS 26 Mar 20142001 ------- ------- ------- ------- -- C-SPINE and L-SPINE X-RAYS ELISHA LOUIS 03/27 Referred for Appointment [employer]([facility] Flight Medicin e PCMH Clin) [employer]([facility] C Physical Therapy) OUTPATIENT [id number] Lower back pain KWAN KING Jordyn 03/27 Released w/o Limitations [employer]([facility] Physica l Therapy ) [employer]([facility] C Optometry ) OUTPATIENT [id number] eye exam CHAS-SAMMY ERAZO 05/10 Released w/o Limitations [employer]([facility] Optomet ry) [employer]([facility] Medicine) OUTPATIENT [id number] Fly PHA JARED BAHENA 09/01 Released w/o Limitations [employer]([facility]) [employer]([facility] Dply Hlth Assess) OUTPATIENT [id number] DHA4 (has appt with flight med at 0900) JARED BAHENA E 09/01 Released w/o Limitations [employer]([facility] Dply Hlth Assess) [employer]([facility] Medicine) TELE CONSULT [id number] Notes Entered by: OVI CORDON OM 04 Sep 2014 1026 ------- ------- ------- ------- -- In/our process CECI Zavala 09/04 [employer]([facility]in [facility]) [employer]([facility] Medicine Clinic) TELE CONSULT [id number] Notes Entered by: KELLY FRIEDMAN 07 Sep 2014 0812 ------- ------- ------- ------- -- In-Proc KELLY Liu 09/07 Referred for Appointment [employer](F light Medicin e Clinic) [employer]([facility]) OUTPATIENT [id number] LLOYD... ROJAS COLLADO 06/13 Released w/o Limitations [employer]([facility]) [employer]([facility] ) OUTPATIENT [id number] NATE Griffiths 07/02 Released w/o Limitations [employer]([facility] Optomet ry) [employer]([facility]) OUTPATIENT [id number] Notes Entered by: NURIA ARDON 27 Aug 2015 1252 ------- ------- ------- ------- -- Cough NURIA ARDON 08/27 Sick at Home/Quarter s [employer]([facility] Medic[facility]) [employer]([facility] Medicine) OUTPATIENT [id number] Notes Entered by: NURIA ARDON 29 Aug 2015 1531 ------- ------- ------- ------- -- F/NURIA HEWITT 08/29 Released w/o Limitations [employer]([facility] Medicin [facility]) [employer]([facility] Medicine) OUTPATIENT [id number] Notes Entered by: NURIA ARDON 31 Aug 2015 1022 ------- ------- ------- ------- -- Follow up NURIA ARDON 08/31 Released w/o Limitations [employer]([facility] Medicin e) [employer]([facility] Medicine) OUTPATIENT [id number] Notes Entered by: NALDO CURRY 06 Sep 2015 0806 ------- ------- ------- ------- -- F/AIDE ENCISO 09/06 Released w/o Limitations [employer]([facility] Medicin e) [employer]([facility] e Operation s Medicine Cell) OUTPATIENT [id number] PHA.... ....... ....... ....... .JORGE A Day 09/13 Released w/o Limitations [employer](B ase Operati ons Medicin e Cell) [employer]([facility] Dply Hlth Assess) OUTPATIENT [id number] DHA5 AVRIL CONNELL 09/17 Released w/o Limitations [employer]([facility] Dply Hlth Assess) [employer]([facility] Hearing Conservat ion) OUTPATIENT [id number] Notes Entered by: LISA HASSAN 20 Sep 2015 1005 ------- ------- ------- ------- -- Audiogr am CEIC HASSAN 09/20 Released w/o Limitations [employer]([facility]) [employer]([facility]) OUTPATIENT [id number] Notes Entered by: NALDO CURRY 26 Oct 2015 1613 ------- ------- ------- ------- -- LISA1 AIDE CURRY 10/25 Released w/o Limitations [employer]([facility] Medic[facility] e) [employer]([facility] Medicine) OUTPATIENT [id number] Notes Entered by: NALDO CURRY N 06 May 2016 1322 ------- ------- ------- ------- -- DHRA3 AIDE CURRY 05/06 Released w/o Limitations [employer]([facility] Medicin e) [employer]([facility] [employer] Medicine) OUTPATIENT [id number] Notes Entered by: NALDO CURRY 23 Jul 2016 1313 ------- ------- ------- ------- -- AIDE Bell 07/23 Released w/o Limitations [employer]([facility] Medicin e) [employer]([facility] Optometry ) [facility] [id number] [facility] annual NESTOR CABRALES 08/04 Released w/o Limitations [employer]([facility] Optomet [facility]) [employer]([facility] [employer] [facility]) OUTPATIENT [id number] Notes Entered by: NALDO CURRY 28 Aug 2016 1459 ------- ------- ------- ------- -- LBP AIDE CURRY 08/28 Released with Work/Duty Limitations [employer]([facility]) [employer]([facility] [employer] [facility]) OUTPATIENT [id number] Notes Entered by: KALEY FRANCOIS 01 Sep 2016 1116 ------- ------- ------- ------- -- RTFS KALEY FRANCOIS 09/01 Released w/o Limitations [employer]([facility]) [employer]([facility] [employer] Medicine) OUTPATIENT [id number] Notes Entered by: NALDO CURRY 26 Sep 2016 1011 ------- ------- ------- ------- -- DRHA4 AIDE CURRY 09/26 Released w/o Limitations [employer]([facility] Medicin [facility]) [employer]([facility] [employer] Medicine) OUTPATIENT [id number] Notes Entered by: NALDO CURRY 26 Sep 2016 1016 ------- ------- ------- ------- -- AIDE Mott 09/26 Released w/o Limitations [employer]([facility] Medicin [facility]) [employer]([facility]) OUTPATIENT [id number] loulou ramos, ER follow up in [place], cande gipson while annalisa g.....GIOVANY Amos 10/24 Released w/o Limitations [employer]([facility]) [employer]([facility] Medicine) OUTPATIENT [id number] RTFS... RTB STEPHY CAPONE 10/28 Released w/o Limitations [employer]([facility]) [employer]([facility] OUTPATIENT [id number] Low back pain AFSHAN CAMPOS 11/10 Released w/o Limitations [employer]([facility] Chiropr actic Clinic) [facility](All ergy Clin EG) OUTPATIENT [id number] Allergy , unspeci fied, subsequ ent encount MALICK Huitron 11/19 Released w/o Limitations [employer](A llergy Clin EG) [facility] [employer]([facility] Chiroprac tic [facility]) OUTPATIENT [id number] AFSHAN CAMPOS 11/20 Released w/o Limitations [facility] [employer]([facility] Chiropr actic Clinic) [facility] [employer]([facility] Hearing Conservat ion) OUTPATIENT [id number] Notes Entered by: Olya FULLER 20 Nov 2016 1506 ------- ------- ------- ------- -- audiogr am GIOVANY FULLER 11/20 Released w/o Limitations [employer]([facility] Conserv ation) [facility] [employer](Bas e Operation s Medicine Cell) OUTPATIENT [id number] Notes Entered by: BILLY BECERRA 26 Nov 2016 1303 ------- ------- ------- ------- -- Triserv ice Annual PHA KALEY FRANCOIS 11/26 Released w/o Limitations [employer](B ase Operati ons Medicin e Cell) [employer]([facility] Chiroprac tic [facility]) OUTPATIENT [id number] AFSHAN CAMPOS 11/27 Released w/o Limitations [employer]([facility] Chiropr actic Clinic) [facility] [employer](All ergy Clin EG) TELE CONSULT [id number] Notes Entered by: KENDELL KURTZ 01 Dec 2016 1008 ------- ------- ------- ------- -- Would like results of blood work JOSE M ODELL 12/01 [employer](A llergy Clin EG) [employer]([facility] Chiroprac tic Clinic) OUTPATIENT [id number] AFSHAN CAMPOS 12/04 Released w/o Limitations [employer]([facility]) [employer]) OUTPATIENT [id number] AFSHAN CAMPOS 12/18 Released w/o Limitations [employer]([facility] Ch[facility]pr actic [facility]) [employer]([facility] Chiroprac [facility]) OUTPATIENT [id number] AFSHAN CAMPOS 01/01 Released w/o Limitations [employer]([facility] Chiropr actic Clinic) [facility]) OUTPATIENT [id number] AFSHAN CAMPOS 01/27 Released w/o Limitations [employer]([facility]iropr actic [facility]) [facility] [employer]([facility] [employer] [facility]) TELE CONSULT [id number] Notes Entered by: NALDO CURRY N 04 Feb 2017 1034 ------- ------- ------- ------- -- ENT ReferAIDE Farley N 02/04 [employer]([facility]) [employer]([facility] Chiroprac [facility]) OUTPATIENT [id number] AFSHAN CAMPOS 02/11 Released w/o Limitations [employer]([facility] Ch[facility]ic [facility]) [employer]([facility] [employer] Medicine) TELE CONSULT [id number] Notes Entered by: NALDO CURRY N 25 Feb 2017 1241 ------- ------- ------- ------- -- Labs AIDE CURRY 02/25 [employer]([facility] Medicin e) [employer]([facility]) OUTPATIENT [id number] AFSHAN CAMPOS 02/25 Released w/o Limitations [employer]([facility]) [employer]([facility] ) OUTPATIENT [id number] Notes Entered by: CALLIE WHITLOCK 25 Feb 2017 1558 ------- ------- ------- ------- -- NATE Mendez 02/25 Released w/o Limitations [employer]([facility] Optomet ry) [employer]([facility] Medicine) TELE CONSULT [id number] Notes Entered by: NALDO CURRY N 26 Feb 2017 1058 ------- ------- ------- ------- -- Lab Results AIDE CURRY 02/26 [employer]([facility] Medicin e) [employer]([facility] Medicine) OUTPATIENT [id number] Notes Entered by: NALDO CURRY 19 Mar 2017 1732 ------- ------- ------- ------- -- LBP AIDE CURRY 03/19 Released w/o Limitations [employer]([facility] Medicin [facility]) [employer](All ergy Clin EG) OUTPATIENT [id number] Allergy MALICK LA 03/23 Released w/o Limitations [employer](A llergy Clin EG) [facility] [employer]([facility] Medicine) OUTPATIENT [id number] Notes Entered by: NALDO CURRY 23 Mar 2017 1403 ------- ------- ------- ------- -- RTFS AIDE CURRY 03/23 Released w/o Limitations [employer]([facility] Medicin e) [employer]([facility] Chiroprac tic Clinic) OUTPATIENT [id number] AFSHAN CAMPOS 04/02 Released w/o Limitations [employer]([facility] Chiro[facility]ic [facility]) [employer]([facility] ) OUTPATIENT [id number] flyer/C NATE BROOKS 04/17 Released w/o Limitations [employer]([facility] Optomet ry) [facility] OUTPATIENT [id number] Low back pain DHARA BARRETO 05/05 Released w/o Limitations [facility] [employer]([facility] Physica l Therapy ) [facility] [employer]([facility] Chiropra tic [facility]) OUTPATIENT [id number] AFSHAN CAMPOS 05/12 Released w/o Limitations [facility] [employer]([facility] Chiropr actic Clinic) [facility] OUTPATIENT [id number] DHARA BARRETO 05/14 Released w/o Limitations [facility] [employer]([facility] Physica l Therapy ) [facility] [employer](All ergy Clin EG) OUTPATIENT [id number] Allergy FU MALICK MILTON 05/26 Released w/o Limitations [facility] [employer](A llergy Clin EG) [facility] [employer]([facility] Chiroprac tic [facility]) OUTPATIENT [id number] AFSHAN CAMPOS 06/09 Released w/o Limitations [facility] [employer]([facility] Chiropr actic Clinic) [facility] Chiropra tic [facility]) OUTPATIENT [id number] AFSHAN CAMPOS 06/23 Released w/o Limitations [facility] [employer]( [facility] Chiropr actic Clinic) [facility] [employer]([facility] Physical Therapy) OUTPATIENT [id number] DHARA BARRETO 06/25 Released w/o Limitations [facility] [employer]([facility] Physica l Therapy ) [facility] [employer]([facility] Optometry ) OUTPATIENT [id number] ROUT EYE EXAM/WE ARS CONTACT S/WILL BRING GLASSES NATE SOLIS 07/21 Released w/o Limitations [facility] [employer]([facility] Optomet ry) [facility](All ergy Clin EG) OUTPATIENT [id number] Patch Day 2 MALICK MILTON 07/22 Released w/o Limitations [facility] [employer](A llergy Clin EG) [facility](1 [facility] Flight [facility]) TELE CONSULT [id number] Notes Entered by: Radha WEEKS 24 Jul 2017 1016 ------- ------- ------- ------- -- rtfs SHAZIA WEEKS 07/24 [employer]([facility] [employer] Medicin e) [employer](All ergy Clin EG) OUTPATIENT [id number] Patch Day 3 KENDELL KURTZ 07/27 Released w/o Limitations [facility] [employer](A llergy Clin EG) [facility]) OUTPATIENT [id number] AFSHAN CAMPOS 07/29 Released w/o Limitations [facility] [employer]([facility] Chiropr actic Clinic) [facility] [employer](All ergy Clin EG) OUTPATIENT [id number] f/u patch neg MALICK MILTON 08/11 Released w/o Limitations [facility] [employer](A llergy Clin EG) [facility]) OUTPATIENT [id number] AFSHAN CAMPOS 08/26 Released w/o Limitations [facility] [employer]([facility] Chiropr actic Clinic) [facility] [employer]([facility] [employer] Medicine) TELE CONSULT [id number] Notes Entered by: KAYLEY VILLANUEVA 19 Oct 2017 1325 ------- ------- ------- ------- -- Sleep study consult RYAN DOZIER 10/19 [facility](1 [facility] Flight Medicin e) [facility]) OUTPATIENT [id number] AFSHAN CAMPOS 10/28 Released w/o Limitations [facility] [employer]([facility] Chiropr actic Clinic) [facility]) OUTPATIENT [id number] AFSHAN CAMPOS 11/16 Released w/o Limitations [facility] Chiropr actic Clinic) [facility]4 [facility]) OUTPATIENT [id number] proc/ t..CORBIN Vaughn 11/18 Released w/o Limitations [facility](Z [id number] ) [facility]) TELE CONSULT [id number] Notes Entered by: SHANNON SHEPARD 23 Nov 2017 1421 ------- ------- ------- ------- -- Dental DNIF KENDELL CLAIRE 11/23 [facility] [employer]([facility] Medicin [facility]) [facility](1 [facility] Medicine) TELE CONSULT [id number] Notes Entered by: KALEY FRANCOIS 24 Nov 2017 1002 ------- ------- ------- ------- -- admin KALEY FRANCOIS 11/24 [facility](1 [facility] Flight Medicin e) [facility] Chiroprac tic [facility]) OUTPATIENT [id number] AFSHAN CAMPOS 12/09 Released w/o Limitations [facility]( [facility]iropr [facility]) [facility](1 [facility] Flight Medicine) TELE CONSULT [id number] Notes Entered by: VICK AGUILAR 11 Dec 2017 1146 ------- ------- ------- ------- -- Burning Tongue VICK AGUILAR 12/11 [facility] Medicin e) [facility]) TELE CONSULT [id number] Notes Entered by: VICK AGUILAR 15 Dec 2017 1050 ------- ------- ------- ------- -- RTFS VICK AGUILAR 12/15 [facility] Medicin e) [facility](Debi rology [facility]) OUTPATIENT [id number] NILA Christy 12/22 Released w/o Limitations [facility](N eurolog y Clinic) [facility] Medicine) TELE CONSULT [id number] Notes Entered by: VICK AGUILAR 22 Dec 2017 1236 ------- ------- ------- ------- -- Aeromed ical Dispo followi ng consult VICK AGUILAR 12/22 [facility] Flight Medicin e) [facility](ZZ4 E-ARC) OUTPATIENT [id number] [facility] QIANABILLY E 12/29 Released w/o Limitations [facility] [employer](Z [id number] ) [facility] e Operation s Medicine Cell) OUTPATIENT [id number] Notes Entered by: CRICKET CARTER 31 Dec 2017 1151 ------- ------- ------- ------- -- SHPE Record Review SHIRA CARTER 12/31 Released w/o Limitations [facility] [employer](B ase Operati ons Medicin e Cell) [facility] e Operation s Medicine Cell) OUTPATIENT [id number] SHPE RETIREM ENT...MALICK FONSECA 12/31 Released w/o Limitations [facility] [employer](B ase Operati ons Medicin e Cell) [facility] Hearing Conservat ion) OUTPATIENT [id number] Notes Entered by: JERMAINE VALENCIA 01 Jan 2018 0943 ------- ------- ------- ------- -- audiogr am JERMAINE REYES 01/01 Released w/o Limitations [facility] [employer]([facility] Hearing Conserv ation) [facility](1 [facility] Medicine) OUTPATIENT [id number] Notes Entered by: MAYO PRETTY 01 Jan 2018 1102 ------- ------- ------- ------- -- CPAP Rx MAYO PRETTY 01/01 Released w/o Limitations [employer]([facility] Medicin e) [employer] OUTPATIENT [id number] AFSHAN CAMPOS 01/06 Released w/o Limitations [employer]([facility] Chiropr actic Clinic) [employer]([facility] Optometry ) OUTPATIENT [id number] well eye exam,aw are to bring glasses /contac ts, aware of move..s NESTOR George 01/20 Released w/o Limitations [employer]([facility] Optomet ry) [employer](Bas e Operation s Medicine Cell) OUTPATIENT [id number] flight NANCY Spears 01/25 Released w/o Limitations [employer](B ase Operati ons Medicin e Cell) [employer](Debi rology Clinic) OUTPATIENT [id number] 1 month f/u MRI ordered December 22 NILA PERERA 01/25 Released w/o Limitations [employer](N eurolog y Clinic) [employer]([facility] Flight Medicine) TELE CONSULT [id number] Notes Entered by: CLAUDETTE CAMARILLO 12 Feb 2018 1029 ------- ------- ------- ------- -- NETWORK RESULTS - AUTO PAP DOWNLOA D 01/08-0 02/08 COLLEEN PRIETO 02/12 [employer]([facility]in [facility]) [employer]([facility]) OUTPATIENT [id number] Notes Entered by: Kim HAYNES 26 Jul 2018 0913 ------- ------- ------- ------- -- f/u LUIS MIGUEL Alston 07/26 Released w/o Limitations [employer]([facility]) [employer](Opt ometry Clinic [facility]) OUTPATIENT [id number] CARROLL Arrington 08/10 Released w/o Limitations [employer](O ptometr y Clinic Partner ship) [employer]([facility] ) TELE CONSULT [id number] Notes Entered by: Vernon DAVIS 12 Aug 2018 1030 ------- ------- ------- ------- -- NETWORK RESULTS - NEUROLO GY - 018 - LOOK IN LUIS MIGUEL BERNARDO 08/12 [employer]([facility]) [employer]([facility]) TELE CONSULT [id number] Notes Entered by: KAEL VARELA CIA 03 Sep 2018 0846 ------- ------- ------- ------- -- REF JORGE A LANDAVERDE 09/03 Referred for Appointment [employer]([facility]) [employer]([facility]) TELE CONSULT [id number] Notes Entered by: EM BAUGH 25 Jan 2019 0646 ------- ------- ------- ------- -- [facility] JORGE A LANDAVERDE 01/25 Other Not Elsewhere Classified [employer]([facility]) [employer]([facility]) OUTPATIENT [id number] 7 6months f/u CARROLL GILLIS 03/07 Released w/o Limitations [employer](O ptometr y Clinic Partner ship) [employer]([facility]) OUTPATIENT [id number] 0 dfe, scl check approve d by CARROLL Fitzpatrick 03/14 [facility]ased w/o Limitations [facility](O ptometr y Clinic Partner ship) [employer]([facility]) TELE CONSULT [id number] Notes Entered by: KWAKU LEGER 13 Oct 2019 0757 ------- ------- ------- ------- -- [facility] SUDHAKAR HUTTON 10/13 Released to Self Care [employer]([facility]) [employer]([facility]) OUTPATIENT [id number] Respira tory Infecti on ASHLEY BUENROSTRO 10/18 Released w/o Limitations [facility]) [facility]) TELE CONSULT [id number] Notes Entered by: ARIA PRAJAPATI 23 Nov 2019 0741 ------- ------- ------- ------- -- MED ( OUT ) CARLOS JOHN 11/22 Other Not Elsewhere Classified [employer]([facility]) [facility]) OUTPATIENT [id number] Discu ss Back Pain JEAN-PAUL TORRES 11/23 Released w/o Limitations [facility]) [facility]) TELE CONSULT [id number] Notes Entered by: JEAN-PAUL TORRES 30 Jan 2020 0942 ------- ------- ------- ------- -- Results JEAN-PAUL TORERS 01/29 [facility] Group(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, face and neck TARAH GALLO 01/17 Discharge Disposition: Home or Self Care 30C-A [id number] Medgrp- Jovanni [id number] MEDGRP-Sc [facility] [phone] Localiz ed swellin g, mass and lump, neck,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 ROMAN PBANDINO 02/20 Discharge Disposition: Home or Self Care 5C-3 [facility] Baig -375 MED[facility] [place] Out[facility] [id number] TARAH GALLO 03/01 Discharge Disposition: Home or Self Care -3 75th MED[facility]- Jovanni 6130C-Af- C-375 Medgr[facility]-Sc [place] Between Visit [id number] Unspeci fied abdomin al pain 03/03 Discharge Disposition: Home or Self Care 6130C-A f-C-375 Medgrp- Jovanni Procedures Combined list of: 1) Procedures from [facility] Affairs facilities going back up to thelast 18 months, not all VA non-surgical procedures are included; 2) All procedures from the Department of Defense facilities. Procedure Procedure Type Code Date Perfomer Comments Sourc e No data available for this section [facility] BRIEF COMM TECH-BASE SERV,E.G. VIRT CHK-IN,BY PHYS/OTH QUAL HCP,RPT E&M SERV,PROV TO EST PT,NOT ORIG FRM REL E/M SERV PROV W/IN PREV 7DAY NOR LEAD TO E/M SRV/PX W/IN NEXT 24HR/SOON MAGALYS; 5-10 MIN DISC 11/23 DoD TELE ASSESS & MGT SRV PROV QUAL NONPHYS HLTH CARE PRO TO EST PAT,PARENT,GUARD NOT ORIG REL ASSESS & MGT SRV PROV W/IN PREV 7 DAYS NOR LEAD ASSESS & MGT SRV/PX W/IN NXT 24 HR/SOON APT;5-10 MIN MED DIS 11/22 DoD OPHTHALMOLOGICAL SERVICES: MEDICAL EXAMINATION AND EVALUATION, WITH INITIATION OR CONTINUATION OF DIAGNOSTIC AND TREATMENT PROGRAM; INTERMEDIATE, ESTABLISHED PATIENT 03/14 [facility] DETERMINATION OF REFRACTIVE STATE 03/07 [facility] COMPUTERIZED CORNEAL TOPOGRAPHY, UNILATERAL OR BILATERAL, WITH INTERPRETATION AND REPORT 08/10 [facility] BRIEF EMOTIONAL/BEHAVIOR AL ASSESSMENT (EG, DEPRESSION INVENTORY, ATTENTION-DEFICIT/ HYPERACTIVITY DISORDER [ADHD] SCALE), WITH SCORING AND DOCUMENTATION, PER STANDARDIZED INSTRUMENT 07/26 [facility] PRESCRIPTION OF OPTICAL AND PHYSICAL CHARACTERISTICS OF AND FITTING OF CONTACT LENS, WITH MEDICAL SUPERVISION OF ADAPTATION; CORNEAL LENS, BOTH EYES, EXCEPT FOR APHAKIA 05/10 DoD OSTEOPATHIC MANIPULATIVE TREATMENT (OMT); 1-2 BODY REGIONS INVOLVED 03/27 DoD VASECTOMY, UNILATERAL OR BILATERAL (SEPARATE PROCEDURE), INCLUDING POSTOPERATIVE SEMEN EXAM(S) 12/22 [facility] SCREENING TEST OF VISUAL ACUITY, QUANTITATIVE, BILATERAL 12/05 DoD NEUROPSYC TSTNG(EG,DESIRE- REITAN NEUROPSYC RUI,DEION MEMRY SCALES&[place] CARD SORT TST),W QUALIFIED HEALTH CARE PROFSIONAL INTERP&RPT,ADMINIS TERED CAR WORKER HELPER,/HR,LORE HNICIAN TME,FCE-2-FCE 07/28 [facility] DETERMINATION OF REFRACTIVE STATE 04/28 [facility] COLOR VISION EXAMINATION, EXTENDED, EG, ANOMALOSCOPE OR EQUIVALENT 11/22 DoD DETERMINATION OF REFRACTIVE STATE 03/26 DoD PURE TONE AUDIOMETRY (THRESHOLD); AIR ONLY 10/29 DoD COLOR VISION EXAMINATION, EXTENDED, EG, ANOMALOSCOPE OR EQUIVALENT 10/29 DoD MYRINGOTOMY INCLUDING ASPIRATION AND/OR EUSTACHIAN TUBE INFLATION 10/06 DoD NEUROPSYCHOLOGICAL TESTING (EG, [place] CARD SORTING TEST), ADMINISTERED BY A COMPUTER, WITH QUALIFIED HEALTH JOURNEYMAN ELECTRICIAN PV INSTALLER INTERPRETATION AND REPORT 09/03 DoD FITTING OF SPECTACLES, EXCEPT FOR APHAKIA; MONOFOCAL 08/28 DoD DETERMINATION OF REFRACTIVE STATE 04/14 DoD PURE TONE AUDIOMETRY (THRESHOLD); AIR ONLY 10/23 DoD OPHTHALMOLOGICAL SERVICES: MEDICAL EXAMINATION AND EVALUATION, WITH INITIATION OR CONTINUATION OF DIAGNOSTIC AND TREATMENT PROGRAM; INTERMEDIATE, ESTABLISHED PATIENT 09/26 [facility] NEUROPSYCHOLOGICAL TESTING (EG, [place] CARD SORTING TEST), ADMINISTERED BY A COMPUTER, WITH QUALIFIED HEALTH JOURNEYMAN ELECTRICIAN PV INSTALLER INTERPRETATION AND REPORT 05/21 DoD OPHTHALMOLOGICAL SERVICES: MEDICAL EXAMINATION AND EVALUATION, WITH INITIATION OR CONTINUATION OF DIAGNOSTIC AND TREATMENT PROGRAM; INTERMEDIATE, ESTABLISHED PATIENT 03/20 DoD DETERMINATION OF REFRACTIVE STATE 03/07 [facility] SPIROMETRY, INCLUDING GRAPHIC RECORD, TOTAL AND TIMED VITAL CAPACITY, EXPIRATORY FLOW RATE MEASUREMENT(S), WITH OR WITHOUT MAXIMAL VOLUNTARY VENTILATION 03/06 [facility] BRIEF EMOTIONAL/BEHAVIOR AL ASSESSMENT (EG, DEPRESSION INVENTORY, ATTENTION-DEFICIT/ HYPERACTIVITY DISORDER [ADHD] SCALE), WITH SCORING AND DOCUMENTATION, PER STANDARDIZED INSTRUMENT 01/26 [facility] COMPUTERIZED CORNEAL TOPOGRAPHY, UNILATERAL OR BILATERAL, WITH INTERPRETATION AND REPORT 01/20 [facility] MANUAL THERAPY TECHNIQUES (EG, MOBILIZATION/ MANIPULATION, MANUAL LYMPHATIC DRAINAGE, MANUAL TRACTION), 1 OR MORE REGIONS, EACH 15 MINUTES 01/06 [facility] PURE TONE AUDIOMETRY (THRESHOLD), AUTOMATED; AIR ONLY 01/01 [facility] POLYSOMNOGRAPHY;AG E 6 YEARS/OLDER,SLEEP STAGING W 4/MORE ADDITIONAL PARAMETERS OF SLEEP,W INITIATION OF CONTINUOUS POSITIVE AIRWAY PRESSURE THERAPY/BILEVEL VENTILATION,ATTEND ED BY A TECHNOLOGIST 12/28 [facility] MANUAL THERAPY TECHNIQUES (EG, MOBILIZATION/ MANIPULATION, MANUAL LYMPHATIC DRAINAGE, MANUAL TRACTION), 1 OR MORE REGIONS, EACH 15 MINUTES 12/09 [facility] SLEEP STUDY, UNATTENDED, SIMULTANEOUS RECORDING; HEART RATE, OXYGEN SATURATION, RESPIRATORY ANALYSIS (EG, BY AIRFLOW OR PERIPHERAL ARTERIAL TONE), AND SLEEP TIME 11/18 [facility] MANUAL THERAPY TECHNIQUES (EG, MOBILIZATION/ MANIPULATION, MANUAL LYMPHATIC DRAINAGE, MANUAL TRACTION), 1 OR MORE REGIONS, EACH 15 MINUTES 11/16 DoD MANUAL THERAPY TECHNIQUES (EG, MOBILIZATION/ MANIPULATION, MANUAL LYMPHATIC DRAINAGE, MANUAL TRACTION), 1 OR MORE REGIONS, EACH 15 MINUTES 10/28 DoD MANUAL THERAPY TECHNIQUES (EG, MOBILIZATION/ MANIPULATION, MANUAL LYMPHATIC DRAINAGE, MANUAL TRACTION), 1 OR MORE REGIONS, EACH 15 MINUTES 08/26 DoD MANUAL THERAPY TECHNIQUES (EG, MOBILIZATION/ MANIPULATION, MANUAL LYMPHATIC DRAINAGE, MANUAL TRACTION), 1 OR MORE REGIONS, EACH 15 MINUTES 07/29 [facility] PRESCRIPTION OF OPTICAL AND PHYSICAL CHARACTERISTICS OF AND FITTING OF CONTACT LENS, WITH MEDICAL SUPERVISION OF ADAPTATION; CORNEAL LENS, BOTH EYES, EXCEPT FOR APHAKIA 07/21 [facility] PHYSICAL OR MANIPULATIVE THERAPY PERFORMED FOR MAINTENANCE RATHER THAN SIKH 06/25 [facility] CHIROPRACTIC MANIPULATIVE TREATMENT (CMT); SPINAL, 5 REGIONS 06/23 [facility] MANUAL THERAPY TECHNIQUES (EG, MOBILIZATION/ MANIPULATION, MANUAL LYMPHATIC DRAINAGE, MANUAL TRACTION), 1 OR MORE REGIONS, EACH 15 MINUTES 06/09 DoD PHYSICAL OR MANIPULATIVE THERAPY PERFORMED FOR MAINTENANCE RATHER THAN SIKH 05/14 [facility] MANUAL THERAPY TECHNIQUES (EG, MOBILIZATION/ MANIPULATION, MANUAL LYMPHATIC DRAINAGE, MANUAL TRACTION), 1 OR MORE REGIONS, EACH 15 MINUTES 05/12 [facility] THERAPEUTIC PROCEDURE, 1 OR MORE AREAS, EACH 15 MINUTES; THERAPEUTIC EXERCISES TO DEVELOP STRENGTH AND ENDURANCE, RANGE OF MOTION AND FLEXIBILITY 05/05 [facility] OPHTHALMIC ULTRASOUND, ECHOGRAPHY, DIAGNOSTIC; CORNEAL PACHYMETRY, UNILATERAL OR BILATERAL (DETERMINATION OF CORNEAL THICKNESS) 04/17 [facility] MANUAL THERAPY TECHNIQUES (EG, MOBILIZATION/ MANIPULATION, MANUAL LYMPHATIC DRAINAGE, MANUAL TRACTION), 1 OR MORE REGIONS, EACH 15 MINUTES 04/02 [facility] PHYS/OTH QUALIFIED HEALTH JOURNEYMAN ELECTRICIAN PV INSTALLER QUALIFIED,EDUCATIO N,TRAIN,LICENSURE/ REGULATION (WHEN APPLICABLE) EDUC SER RENDERED TO PATS IN A GRP SETTING (EG,,OBESI TY,OR DIABETIC INSTRUCT) 02/25 DoD MANUAL THERAPY TECHNIQUES (EG, MOBILIZATION/ MANIPULATION, MANUAL LYMPHATIC DRAINAGE, MANUAL TRACTION), 1 OR MORE REGIONS, EACH 15 MINUTES 02/25 DoD MANUAL THERAPY TECHNIQUES (EG, MOBILIZATION/ MANIPULATION, MANUAL LYMPHATIC DRAINAGE, MANUAL TRACTION), 1 OR MORE REGIONS, EACH 15 MINUTES 02/11 DoD MANUAL THERAPY TECHNIQUES (EG, MOBILIZATION/ MANIPULATION, MANUAL LYMPHATIC DRAINAGE, MANUAL TRACTION), 1 OR MORE REGIONS, EACH 15 MINUTES 01/27 DoD MANUAL THERAPY TECHNIQUES (EG, MOBILIZATION/ MANIPULATION, MANUAL LYMPHATIC DRAINAGE, MANUAL TRACTION), 1 OR MORE REGIONS, EACH 15 MINUTES 01/01 DoD MANUAL THERAPY TECHNIQUES (EG, MOBILIZATION/ MANIPULATION, MANUAL LYMPHATIC DRAINAGE, MANUAL TRACTION), 1 OR MORE REGIONS, EACH 15 MINUTES 12/18 DoD MANUAL THERAPY TECHNIQUES (EG, MOBILIZATION/ MANIPULATION, MANUAL LYMPHATIC DRAINAGE, MANUAL TRACTION), 1 OR MORE REGIONS, EACH 15 MINUTES 12/04 DoD MANUAL THERAPY TECHNIQUES (EG, MOBILIZATION/ MANIPULATION, MANUAL LYMPHATIC DRAINAGE, MANUAL TRACTION), 1 OR MORE REGIONS, EACH 15 MINUTES 11/27 DoD PURE TONE AUDIOMETRY (THRESHOLD); AIR ONLY 11/26 [facility] PURE TONE AUDIOMETRY (THRESHOLD), AUTOMATED; AIR ONLY 11/20 [facility] APPLICATION OF A MODALITY TO 1 OR MORE AREAS; TRACTION, MECHANICAL 11/20 [facility] APPLICATION OF A MODALITY TO 1 OR MORE AREAS; TRACTION, MECHANICAL 11/10 [facility] DETERMINATION OF REFRACTIVE STATE 08/04 [facility] PSYCHIATRIC EVALUATION OF HOSPITAL RECORDS, OTHER PSYCHIATRIC REPORTS, PSYCHOMETRIC AND/OR PROJECTIVE TESTS, AND OTHER ACCUMULATED DATA FOR MEDICALDIAGNOSTIC PURPOSES 10/25 [facility] VIS FUNCT SCREEN,AUTOMAT/JACOBO I-AUTOMAT BILAT QUANT DETERM VISUAL ACUITY,OCULAR ALIGN,COLOR VISION,PSEUDOISOCH ROMAT PLATES,& FIELD VIS (MAY INC ALL/SOME SCRN DETERM FOR CONTRAST SENSITIV,VIS UND GLARE) 09/13 [facility] PRESCRIPTION OF OPTICAL AND PHYSICAL CHARACTERISTICS OF AND FITTING OF CONTACT LENS, WITH MEDICAL SUPERVISION OF ADAPTATION; CORNEAL LENS, BOTH EYES, EXCEPT FOR APHAKIA 07/02 [facility] PSYCHIATRIC EVALUATION OF HOSPITAL RECORDS, OTHER PSYCHIATRIC REPORTS, PSYCHOMETRIC AND/OR PROJECTIVE TESTS, AND OTHER ACCUMULATED DATA FOR MEDICALDIAGNOSTIC PURPOSES 06/13 DoD COLOR VISION EXAMINATION, EXTENDED, EG, ANOMALOSCOPE OR EQUIVALENT 09/01 DoD PARING OR CUTTING OF BENIGN HYPERKERATOTIC LESION (EG, CORN OR CALLUS); SINGLE LESION 01/09 DoD DESTRUCTION (EG, LASER SURGERY, ELECTROSURGERY, CRYOSURGERY, CHEMOSURGERY, SURGICAL CURETTEMENT), PREMALIGNANT LESIONS (EG, ACTINIC KERATOSES); FIRST LESION 01/03 DoD ELECTROCARDIOGRAM, ROUTINE ECG WITH AT LEAST 12 LEADS; TRACING ONLY, WITHOUT INTERPRETATION AND REPORT 01/13 DoD NONINVASIVE EAR OR PULSE OXIMETRY FOR OXYGEN SATURATION; MULTIPLE DETERMINATIONS (EG, DURING EXERCISE) 01/10 [facility] SUPPLY OF SPECTACLES, EXCEPT PROSTHESIS FOR APHAKIA AND LOW VISION AIDS 04/12 DoD COLOR VISION EXAMINATION, EXTENDED, EG, ANOMALOSCOPE OR EQUIVALENT 10/05 DoD PRESCRIPTION OF OPTICAL AND PHYSICAL CHARACTERISTICS OF AND FITTING OF CONTACT LENS, WITH MEDICAL SUPERVISION OF ADAPTATION; CORNEAL LENS, BOTH EYES, EXCEPT FOR APHAKIA 06/07 DoD FITTING OF SPECTACLES, EXCEPT FOR APHAKIA; MONOFOCAL 05/28 DoD PRESCRIPTION OF OPTICAL AND PHYSICAL CHARACTERISTICS OF AND FITTING OF CONTACT LENS, WITH MEDICAL SUPERVISION OF ADAPTATION; CORNEAL LENS, BOTH EYES, EXCEPT FOR APHAKIA 09/21 DoD SCREENING TEST OF VISUAL ACUITY, QUANTITATIVE, BILATERAL 06/14 DoD SCREENING TEST OF VISUAL ACUITY, QUANTITATIVE, BILATERAL 12/01 DoD OPHTHALMOLOGICAL SERVICES: MEDICAL EXAMINATION AND EVALUATION, WITH INITIATION OR CONTINUATION OF DIAGNOSTIC AND TREATMENT PROGRAM; COMPREHENSIVE, ESTABLISHED PATIENT, 1 OR MORE VISITS 11/25 DoD SERVICE(S) PROVIDED ON AN EMERGENCY BASIS IN THE OFFICE, WHICH DISRUPTS OTHER SCHEDULED OFFICE SERVICES, IN ADDITION TO BASIC SERVICE 11/03 DoD SERVICE(S) PROVIDED ON AN EMERGENCY BASIS IN THE OFFICE, WHICH DISRUPTS OTHER SCHEDULED OFFICE SERVICES, IN ADDITION TO BASIC SERVICE 06/09 DoD SCREENING TEST OF VISUAL ACUITY, QUANTITATIVE, BILATERAL 11/30 DoD FITTING OF SPECTACLES, EXCEPT FOR APHAKIA; MONOFOCAL 05/27 DoD OPHTHALMOLOGICAL SERVICES: MEDICAL EXAMINATION AND EVALUATION, WITH INITIATION OR CONTINUATION OF DIAGNOSTIC AND TREATMENT PROGRAM; COMPREHENSIVE, ESTABLISHED PATIENT, 1 OR MORE VISITS 05/13 [facility] PATIENT EDUCATION, NOT OTHERWISE CLASSIFIED, NON-PHYSICIAN PROVIDER, INDIVIDUAL, PER SESSION 12/16 [facility] DETERMINATION OF REFRACTIVE STATE 12/20 [facility] FITTING OF SPECTACLES, EXCEPT FOR APHAKIA; MONOFOCAL 12/09 [facility] Ophthalmological Prior Patient Start Intermediate Level Care Ophthalmological Prior Patient Start Intermediate Level Care [id number] 03/15 CARROLL GILLIS Computerized Corneal Topography Computerized Corneal Topography 87485 03/09 CARROLL GILLIS Determination Of Refractive State Determination Of Refractive State 60863 03/09 CARROLL GILLIS Computerized Corneal Topography Computerized Corneal Topography 73512 08/11 CARROLL GILLIS Determination Of Refractive State Determination Of Refractive State 81978 08/11 CARROLL GILLIS Ophthalmological New Patient Start Comprehensive Care Ophthalmological New Patient Start Comprehensive Care 36388 08/11 CARROLL GILLIS Internet Med Svc Qual Nonphys Healthcare Prof Estab Patient Internet Med Sv Qual Nonphys Healthcare Prof Estab Patient 09669 07/27 LUIS MIGUEL GUTIERREZ [facility] Visual Function Screening Visual Function Screening 57714 01/25 NANCY ALBERTS [facility] Screening Test Of Visual Acuity, Quantitative, Bilateral Screening Test Of Visual Acuity, Quantitative, Bilateral 76593 01/25 NANCY ALBERTS Extensive Color Vision Testing Extensive Color Vision Testing 44216 01/25 NANCY ALBERTS Tonometry Tonometry 83081 01/25 NANCY ALBERTS Computerized Corneal Topography Computerized Corneal Topography 38837 01/20 NESTOR CABRALES [facility] Mobilization Soft Ti ue Mobilization Soft Tissue 17734 01/06 AFSHAN CAMPOS vib massage, neck and back mm, by [employer] Tech, 10 min [facility] Chiropractic Manip Treatmt (CMT) [facility] Chiropractic Manip Treatmt (CMT) Spinal [facility] 04033 01/06 AFSHAN CAMPOS L/P/S/T/C spine CMT, 5 regions [facility] Threshold Audiogram (Pure Tone) Automated Threshold Audiogram (Pure Tone) Automated 0208T 01/01 JERMAINE REYES DoD Mobilization Soft Ti ue Mobilization Soft Tissue 66267 12/09 AFSHAN CAMPOS massage, neck and back mm, by Chiro Tech, 10 min DoD Chiropractic Manip Treatmt (CMT) [facility] Chiropractic Manip Treatmt (CMT) [facility] 89604 12/09 AFSHAN CAMPOS L/P/S/T/C spine CMT, 5 regions DoD Sleep Study Unattended Record: Heart Rate, O2 Sat, Resp Analysis, Sleep Time Sleep Study Unattended Record: Heart Rate, O2 Sat, Resp Analysis, Sleep Time 57316 11/19 CORBIN BARRAGAN DoD Mobilization Soft Ti ue Mobilization Soft Tissue 15895 11/16 AFSHAN CAMPOS massage, neck and back mm, by Chiro Tech, 10 min DoD Chiropractic Manip Treatmt (CMT) [facility] Chiropractic Manip Treatmt (CMT) [facility] 03762 11/16 AFSHAN CAMPOS L/P/S/T/C spine CMT, 5 regions DoD Mobilization Soft Ti ue Mobilization Soft Tissue 10137 10/28 AFSHAN CAMPOS massage, neck and back mm, by Chiro Tech, 10 min DoD Chiropractic Manip Treatmt (CMT) [facility] Chiropractic Manip Treatmt (CMT) [facility] 95439 10/28 AFSHAN CAMPOS L/P/S/T/C spine CMT, 5 regions DoD Mobilization Soft Ti ue Mobilization Soft Tissue 09001 08/26 AFSHAN CAMPOS massage, neck and back mm, by Chiro Tech, 10 min DoD Chiropractic Manip Treatmt (CMT) [facility] Chiropractic Manip Treatmt (CMT) [facility] 95051 08/26 AFSHAN CAMPOS L/P/S/T/C spine CMT, 5 regions DoD Mobilization Soft Ti ue Mobilization Soft Tissue 03281 07/29 AFSHAN CAMPOS massage, neck and back mm, by Chiro Tech, 10 min DoD Chiropractic Manip Treatmt (CMT) [facility] Chiropractic Manip Treatmt (CMT) [facility] 17186 07/29 AFSHAN CAMPOS L/P/S/T/C spine CMT, 5 regions DoD Prescription & Fitting Bilateral Corneal Lenses (Not Aphakia Prescription & Fitting Bilateral Corneal Lenses (Not Aphakia 54596 07/21 NATE SOLIS Determination Of Refractive State Determination Of Refractive State 87778 07/21 NATE SOLIS Ophthalmological Prior Patient Start Comprehensive Care Ophthalmological Prior Patient Start Comprehensive Care 91498 07/21 NATE SOLIS Mobilization Soft Ti ue Mobilization Soft Tissue 51606 06/25 DHARA BARRETO Osteopathic Manip Treatment (OMT) 1-2 Body Regions Involved Osteopathic Manip Treatment (OMT) 1-2 Body Regions Involved 87836 06/25 DHARA BARRETO Physical or manipulative therapy performed for maintenance rather than religion 06/25 DHARA BARRETO Mobilization Soft Ti ue Mobilization Soft Tissue 70963 06/23 AFSHAN CAMPOS massage, neck and back mm, by Chiro Tech, 10 min DoD Chiropractic Manip Treatmt (CMT) [facility] Chiropractic Manip Treatmt (CMT) [facility] 99238 06/23 AFSHAN CAMPOS L/P/S/T/C spine CMT, 5 regions DoD Mobilization Soft Ti ue Mobilization Soft Tissue 74432 06/09 AFSHAN CAMPOS massage, neck and back mm, by Chiro Tech, 10 min DoD Chiropractic Manip Treatmt (CMT) [facility] Chiropractic Manip Treatmt (CMT) [facility] 54147 06/09 AFSHAN CAMPOS L/P/S/T/C spine CMT, 5 regions DoD Physical or manipulative therapy performed for maintenance rather than religion 05/14 DHARA BARRETO Osteopathic Manip Treatment (OMT) 1-2 Body Regions Involved Osteopathic Manip Treatment (OMT) 1-2 Body Regions Involved 07468 05/14 DHARA BARRETO Mobilization Soft Ti ue Mobilization Soft Tissue 60908 05/14 DHARA BARRETO Mobilization Soft Ti ue Mobilization Soft Tissue 66991 05/12 AFSHAN CAMPOS massage, neck and back mm, by Chiro Tech, 10 min DoD Chiropractic Manip Treatmt (CMT) [facility] Chiropractic Manip Treatmt (CMT) [facility] 87212 05/12 AFSHAN CAMPOS L/P/S/T/C spine CMT, 5 regions DoD Exercises A isted Exercises For ROM Exercises Assisted Exercises For ROM 30298 05/05 DHARA BARRETO Mobilization Soft Ti ue Mobilization Soft Tissue 30867 05/05 DHARA BARRETO Physical or manipulative therapy performed for maintenance rather than religion 05/05 DHARA BARRETO Osteopathic Manip Treatment (OMT) 1-2 Body Regions Involved Osteopathic Manip Treatment (OMT) 1-2 Body Regions Involved 16764 05/05 DHARA BARRETO Corneal Pachymetry Corneal Pachymetry 76612 NATE SOLIS Computerized Corneal Topography Computerized Corneal Topography 71820 04/17 NATE SOLIS Chiropractic Manip Treatmt (CMT) [facility] Chiropractic Manip Treatmt (CMT) [facility] 50262 04/02 AFSHAN CAMPOS/P/S/T/C spine CMT, 5 regions DoD Mobilization Soft Ti ue Mobilization Soft Tissue 79627 04/02 AFSHAN CAMPOS massage, mid and low back mm, by Chiro Tech, 10 min Danielle Bourne-[employer] -[employer] 28803 02/26 NATE SOLIS Mobilization Soft Ti ue Mobilization Soft Tissue 31174 02/25 AFSHAN CAMPOS massage, neck and back mm, by Chiro Tech, 10 min Danielle Chiropractic Manip Treatmt (CMT) [facility] Chiropractic Manip Treatmt (CMT) [facility] 21934 02/25 AFSHAN CAMPOS L/P/S/T/C spine CMT, 5 regions DoD Mobilization Soft Ti ue Mobilization Soft Tissue 77308 02/11 AFSHAN CAMPOS vib massage, neck and back mm, by Chiro Tech, 10 min [facility] Chiropractic Manip Treatmt (CMT) [facility] Chiropractic Manip Treatmt (CMT) [facility] 41326 02/11 AFSHAN CAMPOS L/P/S/T/C spine CMT, 5 regions DoD Chiropractic Manip Treatmt (CMT) [facility] Chiropractic Manip Treatmt (CMT) [facility] 71731 01/27 AFSHAN CAMPOS L/P/S/T/C spine CMT, 5 regions DoD Mobilization Soft Ti ue Mobilization Soft Tissue 53613 01/27 AFSHAN CAMPOS vib massage, neck and back mm, by Chiro Tech, 10 min DoD Chiropractic Manip Treatmt (CMT) [facility] Chiropractic Manip Treatmt (CMT) [facility] 19051 01/01 AFSHAN CAMPOS L/P/S/T/C spine CMT, 5 regions DoD Mobilization Soft Ti ue Mobilization Soft Tissue 96717 01/01 AFSHAN CAMPOS vib massage, neck and back mm, by Chiro Tech, 10 min DoD Chiropractic Manip Treatmt (CMT) [facility] Chiropractic Manip Treatmt (CMT) [facility] 76609 12/18 AFSHAN CAMPOS L/P/S/T/C spine CMT, 5 regions DoD Mobilization Soft Ti ue Mobilization Soft Tissue 84014 12/18 AFSHAN CAMPOS vib massage, neck and back mm, by Chiro Tech, 10 min DoD Mobilization Soft Ti ue Mobilization Soft Tissue 29074 12/04 AFSHAN CAMPOS vib massage, neck and back mm, by Chiro Tech, 10 min DoD Chiropractic Manip Treatmt (CMT) [facility] Chiropractic Manip Treatmt (CMT) [facility] 18170 12/04 AFSHAN CAMPOS L/P/S/T/Latrice spine CMT, 5 regions DoD Threshold Audiogram (Pure Tone) Threshold Audiogram (Pure Tone) 49984 11/28 KALEY FRANCOIS Screening Test Of Visual Acuity, Quantitative, Bilateral Screening Test Of Visual Acuity, Quantitative, Bilateral 09540 11/28 KALEY FRANCOIS Extensive Color Vision Testing Extensive Color Vision Testing 80109 11/28 KALEY FRANCOIS [facility] Tonometry Tonometry 74611 11/28 KALEY FRANCOIS Mobilization Soft Ti ue Mobilization Soft Tissue 86054 11/27 AFSHAN CAMPOS TPT to mid and low back mm by IST Spinalator table, 10 min, by or loreta Santos Modalities Traction Modalities Traction 57194 11/27 AFSHAN CAMPOS Intersegmental Traction to LPST regions, 10 min DoD Chiropractic Manip Treatmt (CMT) [facility] Chiropractic Manip Treatmt (CMT) [facility] 19363 11/27 AFSHAN CAMPOS L/P/S/T/C spine CMT, 5 regions DoD Threshold Audiogram (Pure Tone) Automated Threshold Audiogram (Pure Tone) Automated 0208T 11/20 GIOVANY FULLER DoD Mobilization Soft Ti ue Mobilization Soft Tissue 17509 11/20 AFSHAN CAMPOS TPT to mid and low back mm by IST Spinalator table, 10 min, by or loreta Santos Modalities Traction Modalities Traction 6501111/20 ASFHAN CAMPOS Intersegmental Traction to LPST regions, 10 min DoD Chiropractic Manip Treatmt (CMT) [facility] Chiropractic Manip Treatmt (CMT) [facility] 52244 11/20 AFSHAN CAMPOS L/P/S/T/C spine CMT, 5 regions DoD Modalities Traction Modalities Traction 0566911/10 AFSHAN CAMPOS Intersegmental Traction to LPST regions, 10 min DoD Mobilization Soft Ti ue Mobilization Soft Tissue 72328 11/10 AFSHAN CAMPOS TPT to mid and low back mm by IST Spinalator table, 10 min, by or tech Danielle Chiropractic Manip Treatmt (CMT) [facility] Chiropractic Manip Treatmt (CMT) [facility] 59414 11/10 AFSHAN CAMPOS L/P/S/T/C spine CMT, 5 regions DoD Ophthalmological Prior Patient Start Comprehensive Care Ophthalmological Prior Patient Start Comprehensive Care 78656 08/04 NESTOR CABRALES Prescription & Fitting Bilateral Corneal Lenses (Not Aphakia Prescription & Fitting Bilateral Corneal Lenses (Not Aphakia 99679 08/04 NESTOR CABRALES [employer] [facility] Fitting Monofocals (Not For Aphakia) [employer] [facility] Fitting Monofocals (Not For Aphakia) 15252 08/04 NESTOR CABRALES Determination Of Refractive State Determination Of Refractive State 17459 08/04 NESTOR CABRALES Psychiatric Evaluation Review of Records and Reports Psychiatric Evaluation Review of Records and Reports 35889 10/25 CORBIN MORTON Extensive Color Vision Testing Extensive Color Vision Testing 32748 09/13 ERICA CAGLE Visual Function Screening Visual Function Screening 73600 09/13 ERICA CAGLE Tonometry Tonometry 46595 09/13 ERICA CAGLE Audiogram (Screening) Audiogram (Screening) 17529 09/13 ERICA CAGLE Prescription & Fitting Bilateral Corneal Lenses (Not Aphakia Prescription & Fitting Bilateral Corneal Lenses (Not Aphakia 81429 07/02 NATE HARDEN Spectacles Services Fitting Monofocals (Not For Aphakia) Spectacles Services Fitting Monofocals (Not For Aphakia) 44260 07/02 [place] Determination Of Refractive State Determination Of Refractive State 14417 07/02 [place] Ophthalmological New Patient Start Comprehensive Care Ophthalmological New Patient Start Comprehensive Care 26142 07/02 [place] Psychiatric Evaluation Review of Records and Reports Psychiatric Evaluation Review of Records and Reports 57834 06/13 ROJAS SELF Psychometric Neuropsych Testing Battery Admin By Computer Psychometric Neuropsych Testing Battery Admin By Computer 13778 06/13 ROJAS SELF Extensive Color Vision Testing Extensive Color Vision Testing 75240 09/01 JARED BAHENA Preventive Medicine Physical Exam Vital Signs Recorded Preventive Medicine Physical Exam Vital Signs Recorded 09/01 JARED BAHENA Screening Test Of Visual Acuity, Quantitative, Bilateral Screening Test Of Visual Acuity, Quantitative, Bilateral 20686 09/01 JARED BAHENA Threshold Audiogram (Pure Tone) Threshold Audiogram (Pure Tone) 48799 09/01 JARED BAHENA Non-Physician Phone Call To Patient/Provider Brief (5-10min) Non-Physician Phone Call To Patient/Provider Brief (5-10min) 87719 TERESA CANCHOLA [facility] Brief communication technology-based service, e.g. virtual check-in, by a physician or other qualified health care profe kirby who can report evaluation and management services, provided to an established patient, not originating from a related E/M service provided within the previous 7 days nor leading to an E/M service or procedure within the next 24 hours or soonest available appointment; 5-10 minutes of medical discu ayah SEVERINOERJEAN-PAUL Prescription & Fitting Bilateral Corneal Lenses (Not Aphakia Prescription & Fitting Bilateral Corneal Lenses (Not Aphakia 19721 05/10 SAMMY HERNANDEZ Spectacles Services Fitting Monofocals (Not For Aphakia) Spectacles Services Fitting Monofocals (Not For Aphakia) 05233 05/10 SAMMY HERNANDEZ Determination Of Refractive State Determination Of Refractive State 8523905/10 SAMMY HERNANDEZ Ophthalmological Prior Patient Start Comprehensive Care Ophthalmological Prior Patient Start Comprehensive Care 81939 05/10 SAMMY HERNANDEZ Osteopathic Manip Treatment (OMT) 1-2 Body Regions Involved Osteopathic Manip Treatment (OMT) 1-2 Body Regions Involved 47330 03/27 KWAN KING Physical Therapy: ___ Se ion Segments, 15 Minutes Each Physical Therapy: ___ Session Segments, 15 Minutes Each 71804 03/27 KWAN KING Physical Medicine Physical Therapy Evaluation Physical Medicine Physical Therapy Evaluation 76978 03/27 KWAN KING Surgery Of Male Genitalia Vasectomy Surgery Of Male Genitalia Vasectomy 84664 12/22 COLTON LI Screening Test Of Visual Acuity, Quantitative, Bilateral Screening Test Of Visual Acuity, Quantitative, Bilateral 91718 12/05 VALERIE SAENZ Threshold Audiogram (Pure Tone) Threshold Audiogram (Pure Tone) 06516 12/05 VALERIE SAENZ Psychometric Neuropsych Testing Battery Admin By Enrollment Eligibility Representative Psychometric Neuropsych Testing Battery Admin By Enrollment Eligibility Representative 17563 07/28 PAMELA DEVINE Determination Of Refractive State Determination Of Refractive State 89797 04/28 VALERIE LANDAVERDE Prescription & Fitting Bilateral Corneal Lenses (Not Aphakia Prescription & Fitting Bilateral Corneal Lenses (Not Aphakia 55233 04/28 VALERIE LANDAVERDE Ophthalmological Prior Patient Start Comprehensive Care Ophthalmological Prior Patient Start Comprehensive Care 08945 04/28 VALERIE LANDAVERDE Extensive Color Vision Testing Extensive Color Vision Testing 21593 11/22 SCHUYLER NOVA Audiogram (Screening) Audiogram (Screening) 60745 11/22 SCHUYLER NOVA Ophthalmological Prior Patient Start Comprehensive Care Ophthalmological Prior Patient Start Comprehensive Care 83696 03/26 JARED KAT Determination Of Refractive State Determination Of Refractive State 75507 03/26 JARED KAT Electrocardiogram Electrocardiogram 65692 10/30 JERMAINE PATEL Extensive Color Vision Testing Extensive Color Vision Testing 31278 10/30 MON[place] QUINTANILLA Visual Function Screening Visual Function Screening 08619 10/29 JERMAINE PATEL Threshold Audiogram (Pure Tone) Threshold Audiogram (Pure Tone) 99499 10/29 JERMAINE PATEL Myringotomy - With Aspiration Myringotomy - With Aspiration 09708 10/07 SERENA YEE written consent obtained. topical phenol applied to tm. 3 mm stab incision made. 1-3 ml of harshal fluid suctioned from tm. Danielle Psychometric Neuropsych Testing Battery Admin By Computer Psychometric Neuropsych Testing Battery Admin By Computer 74332 09/03 KIMBERLY CHAND Spectacles Services Fitting Monofocals (Not For Aphakia) Spectacles Services Fitting Monofocals (Not For Aphakia) 45456 08/29 PRIYA OLIVARES Ophthalmological Prior Patient Start Comprehensive Care Ophthalmological Prior Patient Start Comprehensive Care 51469 04/14 JARED KAT Determination Of Refractive State Determination Of Refractive State 05532 04/14 JARED KAT Threshold Audiogram (Pure Tone) Threshold Audiogram (Pure Tone) 34699 10/23 SUREKHA ALAN Screening Test Of Visual Acuity, Quantitative, Bilateral Screening Test Of Visual Acuity, Quantitative, Bilateral 53483 10/23 SUREKHA ALAN Ophthalmological Prior Patient Start Intermediate Level Care Ophthalmological Prior Patient Start Intermediate Level Care 88731 09/27 JAKE TERESA Psychometric Neuropsych Testing Battery Admin By Computer Psychometric Neuropsych Testing Battery Admin By Computer 84659 05/24 SHANA BUCIO Ophthalmological Prior Patient Start Intermediate Level Care Ophthalmological Prior Patient Start Intermediate Level Care 93360 03/20 JARED KAT Determination Of Refractive State Determination Of Refractive State 53218 03/07 JARED KAT Ophthalmological New Patient Start Intermediate Level Care Ophthalmological New Patient Start Intermediate Level Care 85677 03/07 JARED KAT Allergy Percutaneous tests - allergenic extracts 03/06 ELIAZAR BAER Spirometry Spirometry 63503 03/06 ELIAZAR BAER Extensive Color Vision Testing Extensive Color Vision Testing 22003 10/05 MARCO GUERRA Threshold Audiogram (Pure Tone) Threshold Audiogram (Pure Tone) 24063 10/05 MARCO GUERRA Screening Test Of Visual Acuity, Quantitative, Bilateral Screening Test Of Visual Acuity, Quantitative, Bilateral 50029 10/05 MACRO GUERRA Prescription & Fitting Bilateral Corneal Lenses (Not Aphakia Prescription & Fitting Bilateral Corneal Lenses (Not Aphakia 04340 06/07 JULIA LEAVITT Determination Of Refractive State Determination Of Refractive State 82710 06/07 JULIA LEAVITT Spectacles Services Fitting Monofocals (Not For Aphakia) Spectacles Services Fitting Monofocals (Not For Aphakia) 51562 05/28 ALINA WALTERS Ophthalmological Prior Patient Start Comprehensive Care Ophthalmological Prior Patient Start Comprehensive Care 10644 05/28 ALINA WALTERS Determination Of Refractive State Determination Of Refractive State 50729 05/28 ALINA WALTERS Prescription & Fitting Bilateral Corneal Lenses (Not Aphakia Prescription & Fitting Bilateral Corneal Lenses (Not Aphakia 84893 09/26 SERENA RUTLEDGE Ophthalmological New Patient Start Comprehensive Care Ophthalmological New Patient Start Comprehensive Care 55902 09/26 SERENA RUTLEDGE Determination Of Refractive State Determination Of Refractive State 69196 09/[address] Services Special Review / Reporting Of Patient Status Services Special Review / Reporting Of Patient Status 80712 06/14 [facility] Electrocardiogram Electrocardiogram 56986 06/14 [facility] Threshold Audiogram (Pure Tone) Threshold Audiogram (Pure Tone) 09651 06/14 [facility] Tonometry Tonometry 75391 06/14 [facility] WILLSON[facility]im Santos Extensive Color Vision Testing Extensive Color Vision Testing 04743 06/14 [facility] Visual Function Screening Visual Function Screening 71694 06/14 [facility] Screening Test Of Visual Acuity, Quantitative, Bilateral Screening Test Of Visual Acuity, Quantitative, Bilateral 56525 06/14 [facility] Screening Test Of Visual Acuity, Quantitative, Bilateral Screening Test Of Visual Acuity, Quantitative, Bilateral 21643 12/[address] Services Special Review / Reporting Of Patient Status Services Special Review / Reporting Of Patient Status 79443 12/01 RUSLAN MAKI Oral Surgery Tooth Extraction Oral Surgery Tooth Extraction 90204 12/01 RUSLAN MAKI wisdom teeth X 3 @ 23 years of age [facility] Prescription & Fitting Bilateral Corneal Lenses (Not Aphakia Prescription & Fitting Bilateral Corneal Lenses (Not Aphakia 31015 11/28 SERENA RUTLEDGE Spectacles Services Fitting Monofocals (Not For Aphakia) Spectacles Services Fitting Monofocals (Not For Aphakia) 86278 11/25 SERENA RUTLEDGE Ophthalmological Prior Patient Start Comprehensive Care Ophthalmological Prior Patient Start Comprehensive Care 42136 11/25 SERENA RUTLEDGE Determination Of Refractive State Determination Of Refractive State 48416 11/25 SERENA RUTLEDGE Services Provided On An Emergency Basis In The Office 11/03 MIGUEL ANAND DoD Services Provided On An Emergency Basis In The Office 06/09 SHAZIA RIBEIRO Screening Test Of Visual Acuity, Quantitative, Bilateral Screening Test Of Visual Acuity, Quantitative, Bilateral 57832 11/30 BABS SANTO Determination Of Refractive State Determination Of Refractive State 34629 05/27 PAU RUSH Prescription & Fitting Bilateral Corneal Lenses (Not Aphakia Prescription & Fitting Bilateral Corneal Lenses (Not Aphakia 44073 05/27 PAU RUSH Spectacles Services Fitting Monofocals (Not For Aphakia) Spectacles Services Fitting Monofocals (Not For Aphakia) 27649 05/27 JIM SMITH Ophthalmological Prior Patient Start Comprehensive Care Ophthalmological Prior Patient Start Comprehensive Care 88585 05/13 PAU RUSH Determination Of Refractive State Determination Of Refractive State 76264 05/13 PAU RUSH Social History Combined list of available smoking, tobacco, and other social history from 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 Social History Type Response Date Comment Sour e Sex Representation Male (finding) 05/11/2020 Un known Organization Tobacco Cigarette use: Never-cigarette user. Other Tobacco use: Never-other tobacco user (not cigarettes). Ambulatory Pharmacy Sexual Orientation Ambula tory Pharmacy Gender identity Ambulator y Pharmacy This section is an empty social history section. [facility] Assessment and Plan Combined list of future care activities from Department of Defense and Veterans Affairs facilities (e.g., assessment and plan notes, appointments, orders, and referrals). Additional future care activities may be listed in the Plan of Care section. Result Assessment and Plan Date Source Assessment and Plan Extracted from:Title : Lipoma, Lentigos Author: ROMAN CHAPARRO MD Date: 02/20/25 1. L ocalized swelling, mass and lump, neck 2. O ther melanin hyperpigmentation [employer] D[facility] OUTPATIENT ENCOUNTER CC: B ump HPI: 49 Years o ld [place] 2 Male p resents reporting bump on posterior neck/occipital scalp for at least 1+ years, slowly growing, no rapid growth/change or pain/tenderness. No other lumps/growths. Family Hx: N oncontributory Personal Hx: No skin cancer Other: N/A ROS: DVPRS Pain scale (related to skin): 0/10 Changing moles? (unless o/w noted in HPI): N o Rash? (unless o/w noted in HPI): No Other: N/A EXAM: General: Well-developed, Mood/Affect normal, Alert/Oriented Conjunctivae/Eyelids: Normal Eccrine/Apocrine glands: Normal _ A skin exam of the s calp, hair, face, eyes, ears, neck, decolletage, and upper extremities (including digits/nails) was unremarkable except for the following: - A pprox 3cm soft mobile subcutaneous mass on L lower occipital scalp/neck - multiple scattered [id number]-jp-[id number] brown s imilar and uniformly pigmented macules on face/forearms ASSESSMENT/PLAN 1. F avor benign lipoma - Counseled on pathogenesis and its relatively benign but chronic nature, as well as tx options to include observation only versus elective space-available excision. - Pt not interested in surgery at this time. f /u if desire surgical removal in future. - If desire surgical removal in the future, then recommend refer to Gen Surg for elective surgical removal (given low availability of surgical time in Derm) - f/u if begins to rapidly grow/change or become symptomatic - Pt v/u 2. S olar lentigos - B enign, recommend use daily sunscreen Active Duty: No Patient e ducated on dermatological diagnoses/recommendations a s above. All questions answered. I spent 15+ cumulative minutes providing care to the patient (e.g. chart review, obtaining history, performing a skin exam, counseling/educating the patient, and documentation). Any medication change(s) were reviewed during the visit, and patient verbalized understanding. An updated med list was offered/provided to patient at the end of the encounter. Patient has been educated about the importance of medication adherence and maintaining accurate list of medications. //SIGNED// Roman Chaparro MD, FAAD [employer], [facility], , FS Physician Gynecologist Dermatopathologist Sausage Linker, [facility] [address] [place], [place] Extracted from:Title: [facility] Clinic Note - flank pain, dysphagia Author: TARAH LANE MD Date: 01/17/25 1. F lank pain Subacute, b/l w/o sxs. S uspect msk. R enal unlikely but SDM to eval w/ imaging. - CTAP w/o con - Flexeril 5 qhs prn, l rashid 5% qd (can cut) for suspect msk - Pt to wait to activate meds p ending imaging - If no etiology identified, will presume msk a nd can tx w/ f lexeril/lido/exercisesstretches ( exercises/stretches discussed) - Pt v/u/a, will contact w/ imaging results Ordered: cyclobenzaprine(Flexeril 5 mg oral tablet), 1 tab(s), Oral, every day at bedtime, # 14 tab(s), 0 total refill(s), Acute, Pharmacy: [facility] [Not filled] lidocaine topical(lidocaine 5% topical patch), 1 patch(es), Topical, Daily, Leave on for up to 12 hours within a 24 hour period (12 hours on, 12 hours off). Can cut in half and apply to both flanks., # 30 patch(es), 0 total refill(s), Maintenance, Pharmacy: [facility] [Not filled] CT Abdomen and Pelvis w/o Contrast 2. D ysphagia Acute on chronic, no prior EGD. No red flags. Ddx is broad, includes globus, ring, EoE, achalasia, stricture, barrets. Known allergies possibly contributing. - PPI to 40 qd - GI referral for EGD - ER precautions discussed - F/u s/p GI Ordered: pantoprazole(Protonix 40 mg oral delayed release tablet), 1 tab(s), Oral, Daily, # 90 tab(s), 3 total refill(s), Maintenance, Pharmacy: [facility] [Not filled] Referral Request 2.0 - DoD 3. L ipoma of head Seen previously on US w/ plan to refer to derm but referral not placed. Will place. Ordered: Referral Request 2.0 - DoD 4. S creening for malignant neoplasm of large intestine not done Due for routine CRC. No personal or known fhx of CRC. GI referral for c-scope. Ordered: Referral Request 2.0 - DoD Tarah Lane MD, MILADY, MPH PGY-3, Family [facility] mcdonough oJvanni [place], [place] Addendum by SHENA TUTTLE MD on January 19, 2025 14:50:07 CDT I certify that I was immediately available to review and discuss this patient. T he resident discussed the diagnosis and treatment plan for this patient with me [id number]. I agree with these written findings and plan. Maj Kim Tuttle DO, [facility] Sports/Family Medicine Faculty Physician [address] [place] [address], HCOS/SGGF [facility] Jovanni [place], [place] Extracted from:Title: [facility] - L Occiput SubQ Nodule Author: SAM LR MD Date: 08/08/24 1. M ass of skin of head C hronic, unresolved, no recent change Suspect either lipoma versus EIC. W ill get ultrasound to confirm and ensure n o extension deeper than expected Will place dermatology referral if appropriate following evaluation with ultrasound Return to clinic precautions provided Follow-up i f worsening in size or any other associated symptoms Ordered: US Head/Neck Soft Tissue Patient is in agreement with the plan and voiced understanding. Sam Lr MD, NATALIE ANN Duque Sports/Family Medicine Physician [facility] COS/SGGF Jovanni [place] Family Medicine [facility] Faculty Physician This note was dictated using [employer] dictation software. While it was proofread for errors, there may still be grammatical and dictation errors. Extracted from:Title: Breezy_Contact/dyshydrotic eczema bilateral hands Author: ROJAS ELI DO Date: 07/06/24 1. E czema Chronic not improving Differentials include d yshidrotic eczema, contact dermatitis, l ess likely r heumatologic g iven d irect e nvironmental i nciting j obs l eading to h is e czema, less likely fungal given negative [place] Vega lamp -Continue c onservative therapy i nvolving wearing gloves at work a nd O TC lotions -Prescribed h igh potency s teroid, clobetasol, a nd counseled o n wearing g loves at night t o help increase absorption o f the steroid cream -Follow-up PRN 2. A marilyn reflux Chronic uncomplicated Encouraged O TC m edication s uch as T ums f or fast acting relief -Prescribed P rotonix 8 -week trial -Follow-up a pproximately 2 months i f no significant improvement in symptoms f or further evaluation Rojas Eli, (), [facility] Log Manager, PGY-2 Jovanni [place] Orders: clobetasol topical(clobetasol 0.05% topical foam), 1 appl(s), Topical, Daily, # 110 g, 1 total refill(s), Maintenance, 1 appl(s) Topical Daily, Pharmacy: [facility] #[id number] [External Rx] pantoprazole(Protonix 20 mg oral delayed release tablet), 1 tab(s), Oral, Daily, # 90 tab(s), 3 total refill(s), Maintenance, 1 tab(s) Oral Daily, Pharmacy: [facility] #[id number] [External Rx] Addendum by ROBERTO MARSHALL DO on July 13, 2024 22:52:56 EVENT COORDIN[employer] I certify that I was present for case discussion in the Family Medicine preceptor room at the time of this encounter. I have reviewed the note and agree with the findings, assessment, and plan except as I have documented below. Follow up as listed. All labs/imaging/consults to be followed by the ordering provider. DO Cole Castaneda USAFJIM [facility] Family Medicine-Obstetrics Physician [facility] 375HCOS/SGGF DEMETRIS Erazo Extracted from:Title: Ambulatory Patient Education Author: ABDOULAYE GUTIERREZ DO Date: 12/09/23 Sleep Apnea Sleep apnea is a sleep disorder characterized by abnormal pauses in breathing while you sleep. When your breathing pauses, the level of oxygen in your blood decreases. This causes you to move out of deep sleep and into light sleep. As a result, your quality of sleep is poor, and the system that carries your blood throughout your body (cardiovascular system) experiences stress. If sleep apnea remains untreated, the following conditions can develop: High blood pressure (hypertension). Coronary artery disease. Inability to achieve or maintain an erection (impotence). Impairment of your thought process (cognitive dysfunction). There are three types of sleep apnea: 1. Obstructive sleep apnea P auses in breathing during sleep because of a blocked airway. 2. Central sleep apnea P auses in breathing during sleep because the area of the brain that controls your breathing does not send the correct signals to the muscles that control breathing. 3. Mixed sleep apnea A combination of both obstructive and central sleep apnea. RISK FACTORS The following risk factors can increase your risk of developing sleep apnea: Being overweight. Smoking. Having narrow passages in your nose and throat. Being of older age. Being male. Alcohol use. Sedative and tranquilizer use. Ethnicity. Among individuals younger than 35 years, Americans are at increased risk of sleep apnea. SYMPTOMS Difficulty staying asleep. Daytime sleepiness and fatigue. Loss of energy. Irritability. Loud, heavy snoring. Morning headaches. Trouble concentrating. Forgetfulness. Decreased interest in sex. DIAGNOSIS In order to diagnose sleep apnea, your caregiver will perform a physical examination. Your caregiver may suggest that you take a home sleep test. Your caregiver may also recommend that you spend the night in a sleep lab. In the sleep lab, several monitors record information about your heart, lungs, and brain while you sleep. Your leg and arm movements and blood oxygen level are also recorded. TREATMENT The following actions may help to resolve mild sleep apnea: Sleeping on your side. Using a decongestant if you have nasal congestion. Avoiding the use of depressants, including alcohol, sedatives, and narcotics. Losing weight and modifying your diet if you are overweight. There also are devices and treatments to help open your airway: Oral appliances. These are custom-made mouthpieces that shift your lower jaw forward and slightly open your bite. This opens your airway. Devices that create positive airway pressure. This positive pressure splints your airway open to help you breathe better during sleep. The following devices create positive airway pressure: Continuous positive airway pressure (CPAP) device. The CPAP device creates a continuous level of air pressure with an air pump. The air is delivered to your airway through a mask while you sleep. This continuous pressure keeps your airway open. Nasal expiratory positive airway pressure (EPAP) device. The EPAP device creates positive air pressure as you exhale. The device consists of single-use valves, which are inserted into each nostril and held in place by adhesive. The valves create very little resistance when you inhale but create much more resistance when you exhale. That increased resistance creates the positive airway pressure. This positive pressure while you exhale keeps your airway open, making it easier to breath when you inhale again. Bilevel positive airway pressure (BPAP) device. The BPAP device is used mainly in patients with central sleep apnea. This device is similar to the CPAP device because it also uses an air pump to deliver continuous air pressure through a mask. However, with the BPAP machine, the pressure is set at two different levels. The pressure when you exhale is lower than the pressure when you inhale. Surgery. Typically, surgery is only done if you cannot comply with less invasive treatments or if the less invasive treatments do not improve your condition. Surgery involves removing excess tissue in your airway to create a wider passage way. Document Released: 07/31/2003 Document Revised: 2013 Document Reviewed: 12/16/2012 [facility] Patient Information 2 015 [employer]. This information is not intended to replace advice given to you by your health care provider. Make sure you discuss any questions you have with your health care provider. Extracted from:Title: 0055 [facility] Care Author: ABDOULAYE GUTIERREZ DO Date: 12/07/23 1. E ncounter for general adult medical examination without abnormal findings Patient is a [age] Years Male w ith history of O SA p resenting today for annual exam. Discussed that patient is due for lab work, medications and prev med as documented. Patient currently feels well, denies any acute complaints. Does note chronic LBP ( Discussed below). Otherwise, ROS unremarkable. Physical exam is unremarkable. Patient is due for the following Preventative Medicine services, for which, patient has been ordered or referred as noted: - Labs (A1c, lipid panel, renal function panel, TSH) - Immunizations (Flu, COVID) - Colorectal Cancer Screening Otherwise, patient's screenings and vaccinations are UTD as documented. Patient may follow up in 6-12 months for continued PCM care. A total of 40 minutes was spent on this visit reviewing previous notes, counseling the patient on the listed diagnoses, reviewing/ordering tests, adjusting medications, and documenting the findings in this note. Ordered: Hepatitis A,B,C Panel Rapid HIV Screen 2. L ow back pain Patient with chronic low back pain for years. Denies any acute changes today. Notes occasional flares that require single dose of flexaril. No history of red flag symptoms, fevers, chills, night sweats, wt loss, recent infections, etc... Patient feels well today. Exam is unremarkable. Will provide PRN ibuprofen and flexaril for flares. Advised to use caution when taking muscle relaxers. Patient encouraged to return to clinic, present to UCC or ER for persistent worsening or development of other concerning symptoms. Patient cites understanding and agrees with plan of care. 3. O SA - Obstructive sleep apnea History of DARIAN, CPAP has been recalled, requests order for repeat. Will place DME referral and Referral to pulm for any adjustments. Defer further management to that service. Lina Gutierrez DO, Carter Duque, , [facility] Internal Medicine, [place] Extracted from:Title: Well Adult Author: JEAN-PUAL TORRES PA-C Date: 07/01/21 1. W ell adult C leared to participate in PAT. Physical exam benign. Medical hx reviewed. Follow up prn. Paperwork completed today and returned to patient before he left the clinic. Ordered: Office Visit Level 3 Est 90157 Available past medical records were reviewed in [facility], however may be incomplete from [facility] where previous EMR are located. Reviewed routine vs strict ER return precautions with patient regarding these medical concerns. ? Extracted from:Title: [facility] - R AOM Author: TOBIAS WHEATLEY MD Date: 05/14/21 1. O titis media of right ear A cute R ear otitis media. Non-toxic appearing. Recommend treatment with decongestant to enhance chance of drainage, as well as abx initiation. - Amox-clav 875 mg PO BID x5 days - Phenylephrine 10 mg PO q4h PRN. Patient advised this may be activiating. - No e/o systemic viral infection - R etiree given work note - Patient expressed understanding of above and agreement with plan of care. Ordered: amoxicillin-clavulanate, amoxicillin (as trihydrate) 1 tab(s), Oral, every 12 hr, X 5 days, # 10 tab(s), 0 total refill(s), Acute, 05/19/2021, 1 tab(s) Oral every 12 hr,x5 days, [facility] [Not filled] phenylephrine, 1 tab(s), Oral, every 4 hr, PRN congestion, # 18 tab(s), 0 total refill(s), Acute, 1 tab(s) Oral every 4 hr,PRN:as needed for congestion, [facility]acy: [facility] [Not filled] Office Visit Level 4 Est 90729 2. E levated blood pressure reading without diagnosis of hypertension B P elevated today. Patient stated he has not had a problem with BP in the past, and had a work physical at a separate clinic last week and was told he had excellent blood pressure. 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 - Advised patient that goal BP is on average <140/90 - At this point, will monitor clinically to observe trend. No medication initiated today. Ordered: Office Visit Level 4 Est 55110 Extracted from:Title: Eye Care APSO Office Visit Note Author: CARROLL GILLIS, OD Date: 01/29/21 1. K eratoconus of both corneas Form fanny, B ased on conrneal topography- stable OU,per serial computerized topograpy, d iscovered later in life with pt's application for corneal refractive surgery. p er serial computerized topograpy. Pt still correctable to 20/20 OD/OS with spectacles, and spherical SCLs. Early presbyopia not yet visually significant to require MF Ordered: Computerized Corneal Topography Uni/Bi 52198 Determination Refractive State 78376 Ophthalmological Medical Xm&Eval Comprhnsv Estab Pt 2. B ilateral myopia of eyes Hyperopic shift OU. Reducing minus power in CL/glasses, to avoid multifocal correction O U. Gave SV spec/CL Rx. Cautioned pt to use new trials before ordering to confirm [facility] satisfactory Ordered: Computerized Corneal Topography Uni/Bi 84716 Determination Refractive State 68653 Ophthalmological Medical Xm&Eval Comprhnsv Estab Pt Future Appointments Appointment Date: 04/10/2025 09:10:00 AM Scheduled Provider: JESSICA DORANTES MD Location: [address] [place] [address] Appointment Type: PC 24HR 03/30/[address] [place], [place] [address]J[place] Assessment and Plan Extracted from:Title : Lipoma, Lentigos Author: ROMAN CHAPARRO MD Date: 02/20/25 1. L ocalized swelling, mass and lump, neck 2. O ther melanin hyperpigmentation [employer] DERMATOLOGY OUTPATIENT ENCOUNTER CC: B ump HPI: 49 Years o ld [place] 2 Male p resents reporting bump on posterior neck/occipital scalp for at least 1+ years, slowly growing, no rapid growth/change or pain/tenderness. No other lumps/growths. Family Hx: N oncontributory Personal Hx: No skin cancer Other: N/A ROS: DVPRS Pain scale (related to skin): 0/10 Changing moles? (unless o/w noted in HPI): N o Rash? (unless o/w noted in HPI): No Other: N/A EXAM: General: Well-developed, Mood/Affect normal, Alert/Oriented Conjunctivae/Eyelids: Normal Eccrine/Apocrine glands: Normal _ A skin exam of the s calp, hair, face, eyes, ears, neck, decolletage, and upper extremities (including digits/nails) was unremarkable except for the following: - A pprox 3cm soft mobile subcutaneous mass on L lower occipital scalp/neck - multiple scattered ktzbv-[id number]-[id number] brown s imilar and uniformly pigmented macules on face/forearms ASSESSMENT/PLAN 1. F avor benign lipoma - Counseled on pathogenesis and its relatively benign but chronic nature, as well as tx options to include observation only versus elective space-available excision. - Pt not interested in surgery at this time. f /u if desire surgical removal in future. - If desire surgical removal in the future, then recommend refer to Gen Surg for elective surgical removal (given low availability of surgical time in Derm) - f/u if begins to rapidly grow/change or become symptomatic - Pt v/u 2. S olar lentigos - B enign, recommend use daily sunscreen Active Duty: No Patient e ducated on dermatological diagnoses/recommendations a s above. All questions answered. I spent 15+ cumulative minutes providing care to the patient (e.g. chart review, obtaining history, performing a skin exam, counseling/educating the patient, and documentation). Any medication change(s) were reviewed during the visit, and patient verbalized understanding. An updated med list was offered/provided to patient at the end of the encounter. Patient has been educated about the importance of medication adherence and maintaining accurate list of medications. //SIGNED// Roman Chaparro MD, FAAD [employer], [employer], MC, FS Physician Gynecologist Dermatopathologist Sausage Linker, [facility] [address] [facility] [place], [place] Extracted from:Title: [facility] Clinic Note - flank pain, dysphagia Author: TARAH LANE MD Date: 01/17/25 1. F lank pain Subacute, b/l w/o sxs. S uspect msk. R enal unlikely but SDM to eval w/ imaging. - CTAP w/o con - Flexeril 5 qhs prn, l rashid 5% qd (can cut) for suspect msk - Pt to wait to activate meds p ending imaging - If no etiology identified, will presume msk a nd can tx w/ f lexeril/lido/exercisesstretches ( exercises/stretches discussed) - Pt v/u/a, will contact w/ imaging results Ordered: cyclobenzaprine(Flexeril 5 mg oral tablet), 1 tab(s), Oral, every day at bedtime, # 14 tab(s), 0 total refill(s), Acute, Pharmacy: [facility] [Not filled] lidocaine topical(lidocaine 5% topical patch), 1 patch(es), Topical, Daily, Leave on for up to 12 hours within a 24 hour period (12 hours on, 12 hours off). Can cut in half and apply to both flanks., # 30 patch(es), 0 total refill(s), Maintenance, Pharmacy: [facility] [Not filled] CT Abdomen and Pelvis w/o Contrast 2. D ysphagia Acute on chronic, no prior EGD. No red flags. Ddx is broad, includes globus, ring, EoE, achalasia, stricture, barrets. Known allergies possibly contributing. - PPI to 40 qd - GI referral for EGD - ER precautions discussed - F/u s/p GI Ordered: pantoprazole(Protonix 40 mg oral delayed release tablet), 1 tab(s), Oral, Daily, # 90 tab(s), 3 total refill(s), Maintenance, Pharmacy: [facility] [Not filled] Referral Request 2.0 - DoD 3. L ipoma of head Seen previously on US w/ plan to refer to derm but referral not placed. Will place. Ordered: Referral Request 2.0 - DoD 4. S creening for malignant neoplasm of large intestine not done Due for routine CRC. No personal or known fhx of CRC. GI referral for c-scope. Ordered: Referral Request 2.0 - DoD Tarah Lane MD, MILADY, MPH PGY-3, Family Medicine , TIESHA, [place], [place] Addendum by SHENA TUTTLE MD on January 19, 2025 14:50:07 CDT I certify that I was immediately available to review and discuss this patient. T he resident discussed the diagnosis and treatment plan for this patient with me [id number]. I agree with these written findings and plan. Maj Kim Tuttle DO, [facility] Sports/Family Medicine Faculty Physician [facility], [facility] [place], [place] Extracted from:Title: [facility] - L Occiput SubQ Nodule Author: SAM LR MD Date: 08/08/24 1. M ass of skin of head C hronic, unresolved, no recent change Suspect either lipoma versus EIC. W ill get ultrasound to confirm and ensure n o extension deeper than expected Will place dermatology referral if appropriate following evaluation with ultrasound Return to clinic precautions provided Follow-up i f worsening in size or any other associated symptoms Ordered: US Head/Neck Soft Tissue Patient is in agreement with the plan and voiced understanding. Sam Lr MD, [facility] TIESHA Duque, Sports/Family Medicine Physician [address] [facility] [place] Family Medicine R esidency Faculty Physician This note was dictated using Stickybits dictation software. While it was proofread for errors, there may still be grammatical and dictation errors. Extracted from:Title: Breezy_Contact/dyshydrotic eczema bilateral hands Author: ROJAS ELI DO Date: 07/06/24 1. E czema Chronic not improving Differentials include d yshidrotic eczema, contact dermatitis, l ess likely r heumatologic g iven d irect e nvironmental i nciting j obs l eading to h is e czema, less likely fungal given negative [place] Vega lamp -Continue c onservative therapy i nvolving wearing gloves at work a nd O TC lotions -Prescribed h igh potency s teroid, clobetasol, a nd counseled o n wearing g loves at night t o help increase absorption o f the steroid cream -Follow-up PRN 2. A marilyn reflux Chronic uncomplicated Encouraged O TC m edication s uch as T ums f or fast acting relief -Prescribed P rotonix 8 -week trial -Follow-up a pproximately 2 months i f no significant improvement in symptoms f or further evaluation Capt Te (), TIESHA, Log Manager, PGY-2 [place] Orders: clobetasol topical(clobetasol 0.05% topical foam), 1 appl(s), Topical, Daily, # 110 g, 1 total refill(s), Maintenance, 1 appl(s) Topical Daily, Pharmacy: [facility] #[id number] [External Rx] pantoprazole(Protonix 20 mg oral delayed release tablet), 1 tab(s), Oral, Daily, # 90 tab(s), 3 total refill(s), Maintenance, 1 tab(s) Oral Daily, Pharmacy: [facility] #[id number] [External Rx] Addendum by ROBERTO MARSHALL DO on July 13, 2024 22:52:56 EVENT COORDINATOR [employer]ET[employer] I certify that I was present for case discussion in the Family Medicine preceptor room at the time of this encounter. I have reviewed the note and agree with the findings, assessment, and plan except as I have documented below. Follow up as listed. All labs/imaging/consults to be followed by the ordering provider. DO Cole Castaneda USAFJ[facility] Family Medicine-Obstetrics Physician [facility] [place], [place] Extracted from:Title: Ambulatory Patient Education Author: ABDOULAYE GUTIERREZ DO Date: 12/09/23 Sleep Apnea Sleep apnea is a sleep disorder characterized by abnormal pauses in breathing while you sleep. When your breathing pauses, the level of oxygen in your blood decreases. This causes you to move out of deep sleep and into light sleep. As a result, your quality of sleep is poor, and the system that carries your blood throughout your body (cardiovascular system) experiences stress. If sleep apnea remains untreated, the following conditions can develop: High blood pressure (hypertension). Coronary artery disease. Inability to achieve or maintain an erection (impotence). Impairment of your thought process (cognitive dysfunction). There are three types of sleep apnea: 1. Obstructive sleep apnea P auses in breathing during sleep because of a blocked airway. 2. Central sleep apnea P auses in breathing during sleep because the area of the brain that controls your breathing does not send the correct signals to the muscles that control breathing. 3. Mixed sleep apnea A combination of both obstructive and central sleep apnea. RISK FACTORS The following risk factors can increase your risk of developing sleep apnea: Being overweight. Smoking. Having narrow passages in your nose and throat. Being of older age. Being male. Alcohol use. Sedative and tranquilizer use. Ethnicity. Among individuals younger than 35 years, Americans are at increased risk of sleep apnea. SYMPTOMS Difficulty staying asleep. Daytime sleepiness and fatigue. Loss of energy. Irritability. Loud, heavy snoring. Morning headaches. Trouble concentrating. Forgetfulness. Decreased interest in sex. DIAGNOSIS In order to diagnose sleep apnea, your caregiver will perform a physical examination. Your caregiver may suggest that you take a home sleep test. Your caregiver may also recommend that you spend the night in a sleep lab. In the sleep lab, several monitors record information about your heart, lungs, and brain while you sleep. Your leg and arm movements and blood oxygen level are also recorded. TREATMENT The following actions may help to resolve mild sleep apnea: Sleeping on your side. Using a decongestant if you have nasal congestion. Avoiding the use of depressants, including alcohol, sedatives, and narcotics. Losing weight and modifying your diet if you are overweight. There also are devices and treatments to help open your airway: Oral appliances. These are custom-made mouthpieces that shift your lower jaw forward and slightly open your bite. This opens your airway. Devices that create positive airway pressure. This positive pressure splints your airway open to help you breathe better during sleep. The following devices create positive airway pressure: Continuous positive airway pressure (CPAP) device. The CPAP device creates a continuous level of air pressure with an air pump. The air is delivered to your airway through a mask while you sleep. This continuous pressure keeps your airway open. Nasal expiratory positive airway pressure (EPAP) device. The EPAP device creates positive air pressure as you exhale. The device consists of single-use valves, which are inserted into each nostril and held in place by adhesive. The valves create very little resistance when you inhale but create much more resistance when you exhale. That increased resistance creates the positive airway pressure. This positive pressure while you exhale keeps your airway open, making it easier to breath when you inhale again. Bilevel positive airway pressure (BPAP) device. The BPAP device is used mainly in patients with central sleep apnea. This device is similar to the CPAP device because it also uses an air pump to deliver continuous air pressure through a mask. However, with the BPAP machine, the pressure is set at two different levels. The pressure when you exhale is lower than the pressure when you inhale. Surgery. Typically, surgery is only done if you cannot comply with less invasive treatments or if the less invasive treatments do not improve your condition. Surgery involves removing excess tissue in your airway to create a wider passage way. Document Released: 07/31/2003 Document Revised: 2013 Document Reviewed: 12/16/2012 [facility] Patient Information 2 015 [employer]. This information is not intended to replace advice given to you by your health care provider. Make sure you discuss any questions you have with your health care provider. Extracted from:Title: 0055 [facility] Care Author: ABDOULAYE GUTIERREZ DO Date: 12/07/23 1. E ncounter for general adult medical examination without abnormal findings Patient is a [age] Years Male w ith history of O SA p resenting today for annual exam. Discussed that patient is due for lab work, medications and prev med as documented. Patient currently feels well, denies any acute complaints. Does note chronic LBP ( Discussed below). Otherwise, ROS unremarkable. Physical exam is unremarkable. Patient is due for the following Preventative Medicine services, for which, patient has been ordered or referred as noted: - Labs (A1c, lipid panel, renal function panel, TSH) - Immunizations (Flu, COVID) - Colorectal Cancer Screening Otherwise, patient's screenings and vaccinations are UTD as documented. Patient may follow up in 6-12 months for continued PCM care. A total of 40 minutes was spent on this visit reviewing previous notes, counseling the patient on the listed diagnoses, reviewing/ordering tests, adjusting medications, and documenting the findings in this note. Ordered: Hepatitis A,B,C Panel Rapid HIV Screen 2. L ow back pain Patient with chronic low back pain for years. Denies any acute changes today. Notes occasional flares that require single dose of flexaril. No history of red flag symptoms, fevers, chills, night sweats, wt loss, recent infections, etc... Patient feels well today. Exam is unremarkable. Will provide PRN ibuprofen and flexaril for flares. Advised to use caution when taking muscle relaxers. Patient encouraged to return to clinic, present to C or ER for persistent worsening or development of other concerning symptoms. Patient cites understanding and agrees with plan of care. 3. O SA - Obstructive sleep apnea History of DARIAN, CPAP has been recalled, requests order for repeat. Will place DME referral and Referral to pulm for any adjustments. Defer further management to that service. Lina Gutierrez DO, [facility], , [facility] Internal Medicine, [employer] Extracted from:Title: Well Adult Author: JEAN-PAUL TORRES PA-C Date: 07/01/21 1. W ell adult C leared to participate in PAT. Physical exam benign. Medical hx reviewed. Follow up prn. Paperwork completed today and returned to patient before he left the clinic. Ordered: Office Visit Level 3 Est 70329 Available past medical records were reviewed in [facility], however may be incomplete from [facility] where previous EMR are located. Reviewed routine vs strict ER return precautions with patient regarding these medical concerns. ? Extracted from:Title: [facility] - R AOM Author: TOBIAS WHEATLEY MD Date: 05/14/21 1. O titis media of right ear A cute R ear otitis media. Non-toxic appearing. Recommend treatment with decongestant to enhance chance of drainage, as well as abx initiation. - Amox-clav 875 mg PO BID x5 days - Phenylephrine 10 mg PO q4h PRN. Patient advised this may be activiating. - No e/o systemic viral infection - R etiree given work note - Patient expressed understanding of above and agreement with plan of care. Ordered: amoxicillin-clavulanate, amoxicillin (as trihydrate) 1 tab(s), Oral, every 12 hr, X 5 days, # 10 tab(s), 0 total refill(s), Acute, 05/19/2021, 1 tab(s) Oral every 12 hr,x5 days, [facility]acy: [facility] [Not filled] phenylephrine, 1 tab(s), Oral, every 4 hr, PRN congestion, # 18 tab(s), 0 total refill(s), Acute, 1 tab(s) Oral every 4 hr,PRN:as needed for congestion, Pharmacy: [facility] [Not filled] Office Visit Level 4 Est 66426 2. E levated blood pressure reading without diagnosis of hypertension B P elevated today. Patient stated he has not had a problem with BP in the past, and had a work physical at a separate clinic last week and was told he had excellent blood pressure. 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 - Advised patient that goal BP is on average <140/90 - At this point, will monitor clinically to observe trend. No medication initiated today. Ordered: Office Visit Level 4 Est 81027 Extracted from:Title: Eye Care APSO Office Visit Note Author: CARROLL GILLIS, OD Date: 01/29/21 1. K eratoconus of both corneas Form fanny, B ased on conrneal topography- stable OU,per serial computerized topograpy, d iscovered later in life with pt's application for corneal refractive surgery. p er serial computerized topograpy. Pt still correctable to 20/20 OD/OS with spectacles, and spherical SCLs. Early presbyopia not yet visually significant to require MF Ordered: Computerized Corneal Topography Uni/Bi 83382 Determination Refractive State 04992 Ophthalmological Medical Xm&Eval Comprhnsv Estab Pt 2. B ilateral myopia of eyes Hyperopic shift OU. Reducing minus power in CL/glasses, to avoid multifocal correction O U. Gave SV spec/CL Rx. Cautioned pt to use new trials before ordering to confirm [facility] satisfactory Ordered: Computerized Corneal Topography Uni/Bi 74458 Determination Refractive State 63868 Ophthalmological Medical Xm&Eval Comprhnsv Estab Pt Future Appointments Appointment Date: 04/10/2025 09:10:00 AM Scheduled Provider: JESSICA DORANTES MD Location: [id number] Appointment Type: PC 24HR 03/30/2025 [id number] Assessment and Plan Extracted from:Title : Lipoma, Lentigos Author: ROMAN CHAPARRO MD Date: 02/20/25 1. L ocalized swelling, mass and lump, neck 2. O ther melanin hyperpigmentation [employer] DERMATOLOG[facility] OUTPATIENT ENCOUNTER CC: B ump HPI: 49 Years o ld [place] 2 Male p resents reporting bump on posterior neck/occipital scalp for at least 1+ years, slowly growing, no rapid growth/change or pain/tenderness. No other lumps/growths. Family Hx: N oncontributory Personal Hx: No skin cancer Other: N/A ROS: DVPRS Pain scale (related to skin): 0/10 Changing moles? (unless o/w noted in HPI): N o Rash? (unless o/w noted in HPI): No Other: N/A EXAM: General: Well-developed, Mood/Affect normal, Alert/Oriented Conjunctivae/Eyelids: Normal Eccrine/Apocrine glands: Normal _ A skin exam of the s calp, hair, face, eyes, ears, neck, decolletage, and upper extremities (including digits/nails) was unremarkable except for the following: - A pprox 3cm soft mobile subcutaneous mass on L lower occipital scalp/neck - multiple scattered efadd-th-ndnobj brown s imilar and uniformly pigmented macules on face/forearms ASSESSMENT/PLAN 1. F avor benign lipoma - Counseled on pathogenesis and its relatively benign but chronic nature, as well as tx options to include observation only versus elective space-available excision. - Pt not interested in surgery at this time. f /u if desire surgical removal in future. - If desire surgical removal in the future, then recommend refer to Gen Surg for elective surgical removal (given low availability of surgical time in Derm) - f/u if begins to rapidly grow/change or become symptomatic - Pt v/u 2. S olar lentigos - B enign, recommend use daily sunscreen Active Duty: No Patient e ducated on dermatological diagnoses/recommendations a s above. All questions answered. I spent 15+ cumulative minutes providing care to the patient (e.g. chart review, obtaining history, performing a skin exam, counseling/educating the patient, and documentation). Any medication change(s) were reviewed during the visit, and patient verbalized understanding. An updated med list was offered/provided to patient at the end of the encounter. Patient has been educated about the importance of medication adherence and maintaining accurate list of medications. //SIGNED// Roman Chaparro MD, FAAD [employer], [employer], MC, FS Physician Gynecologist Dermatopathologist Sausage Linker, [facility] [address] [facility], [place] Extracted from:Title: [facility] Clinic Note - flank pain, dysphagia Author: TARAH LANE MD Date: 01/17/25 1. F lank pain Subacute, b/l w/o sxs. S uspect msk. R enal unlikely but SDM to eval w/ imaging. - CTAP w/o con - Flexeril 5 qhs prn, l rashid 5% qd (can cut) for suspect msk - Pt to wait to activate meds p ending imaging - If no etiology identified, will presume msk a nd can tx w/ f lexeril/lido/exercisesstretches ( exercises/stretches discussed) - Pt v/u/a, will contact w/ imaging results Ordered: cyclobenzaprine(Flexeril 5 mg oral tablet), 1 tab(s), Oral, every day at bedtime, # 14 tab(s), 0 total refill(s), Acute, Pharmacy: [facility] [Not filled] lidocaine topical(lidocaine 5% topical patch), 1 patch(es), Topical, Daily, Leave on for up to 12 hours within a 24 hour period (12 hours on, 12 hours off). Can cut in half and apply to both flanks., # 30 patch(es), 0 total refill(s), Maintenance, Pharmacy: [facility] [Not filled] CT Abdomen and Pelvis w/o Contrast 2. D ysphagia Acute on chronic, no prior EGD. No red flags. Ddx is broad, includes globus, ring, EoE, achalasia, stricture, barrets. Known allergies possibly contributing. - PPI to 40 qd - GI referral for EGD - ER precautions discussed - F/u s/p GI Ordered: pantoprazole(Protonix 40 mg oral delayed release tablet), 1 tab(s), Oral, Daily, # 90 tab(s), 3 total refill(s), Maintenance, Pharmacy: [facility] [Not filled] Referral Request 2.0 - DoD 3. L ipoma of head Seen previously on US w/ plan to refer to derm but referral not placed. Will place. Ordered: Referral Request 2.0 - DoD 4. S creening for malignant neoplasm of large intestine not done Due for routine CRC. No personal or known fhx of CRC. GI referral for c-scope. Ordered: Referral Request 2.0 - DoD Tarah Lane MD, MILADY, MPH PGY-3, [facility], [facility], [place], [place] Addendum by SHENA TUTTLE MD on January 19, 2025 14:50:07 CDT I certify that I was immediately available to review and discuss this patient. T he resident discussed the diagnosis and treatment plan for this patient with me [id number]. I agree with these written findings and plan. Maj Kim Tuttle DO, CAANGLEM Sports/Family Medicine Faculty Physician [employer], [facility] [place], [place] Extracted from:Title: [facility] - L Occiput SubQ Nodule Author: SAM LR MD Date: 08/08/24 1. M ass of skin of head C hronic, unresolved, no recent change Suspect either lipoma versus EIC. W ill get ultrasound to confirm and ensure n o extension deeper than expected Will place dermatology referral if appropriate following evaluation with ultrasound Return to clinic precautions provided Follow-up i f worsening in size or any other associated symptoms Ordered: US Head/Neck Soft Tissue Patient is in agreement with the plan and voiced understanding. Sam Lr MD, [facility] , [facility], Sports/Family Medicine Physician [facility] H COS/SGGF [place] Family Medicine [facility] Faculty Physician This note was dictated using Stickybits dictation software. While it was proofread for errors, there may still be grammatical and dictation errors. Extracted from:Title: Breezy_Contact/dyshydrotic eczema bilateral hands Author: ROJAS ELI DO Date: 07/06/24 1. E czema Chronic not improving Differentials include d yshidrotic eczema, contact dermatitis, l ess likely r heumatologic g iven d irect e nvironmental i nciting j obs l eading to h is e czema, less likely fungal given negative [place] Vega lamp -Continue c onservative therapy i nvolving wearing gloves at work a nd O TC lotions -Prescribed h igh potency s teroid, clobetasol, a nd counseled o n wearing g loves at night t o help increase absorption o f the steroid cream -Follow-up PRN 2. A marilyn reflux Chronic uncomplicated Encouraged O TC m edication s uch as T ums f or fast acting relief -Prescribed P rotonix 8 -week trial -Follow-up a pproximately 2 months i f no significant improvement in symptoms f or further evaluation Rojas KasunicCapt Tayla [employer] Log Manager, PGY-2 [place] Orders: clobetasol topical(clobetasol 0.05% topical foam), 1 appl(s), Topical, Daily, # 110 g, 1 total refill(s), Maintenance, 1 appl(s) Topical Daily, Pharmacy: [facility] #[id number] [External Rx] pantoprazole(Protonix 20 mg oral delayed release tablet), 1 tab(s), Oral, Daily, # 90 tab(s), 3 total refill(s), Maintenance, 1 tab(s) Oral Daily, Pharmacy: [facility] #[id number] [External Rx] Addendum by ROBERTO MARSHALL DO on July 13, 2024 22:52:56 EVENT COORDINATOR [employer] I certify that I was present for case discussion in the Family Medicine preceptor room at the time of this encounter. I have reviewed the note and agree with the findings, assessment, and plan except as I have documented below. Follow up as listed. All labs/imaging/consults to be followed by the ordering provider. DO Cole Castaneda USAFJIM [facility] Family Medicine-Obstetrics Physician [facility] [place], [place] Extracted from:Title: Ambulatory Patient Education Author: ABDOULAYE GUTIERREZ DO Date: 12/09/23 Sleep Apnea Sleep apnea is a sleep disorder characterized by abnormal pauses in breathing while you sleep. When your breathing pauses, the level of oxygen in your blood decreases. This causes you to move out of deep sleep and into light sleep. As a result, your quality of sleep is poor, and the system that carries your blood throughout your body (cardiovascular system) experiences stress. If sleep apnea remains untreated, the following conditions can develop: High blood pressure (hypertension). Coronary artery disease. Inability to achieve or maintain an erection (impotence). Impairment of your thought process (cognitive dysfunction). There are three types of sleep apnea: 1. Obstructive sleep apnea P auses in breathing during sleep because of a blocked airway. 2. Central sleep apnea P auses in breathing during sleep because the area of the brain that controls your breathing does not send the correct signals to the muscles that control breathing. 3. Mixed sleep apnea A combination of both obstructive and central sleep apnea. RISK FACTORS The following risk factors can increase your risk of developing sleep apnea: Being overweight. Smoking. Having narrow passages in your nose and throat. Being of older age. Being male. Alcohol use. Sedative and tranquilizer use. Ethnicity. Among individuals younger than 35 years, Americans are at increased risk of sleep apnea. SYMPTOMS Difficulty staying asleep. Daytime sleepiness and fatigue. Loss of energy. Irritability. Loud, heavy snoring. Morning headaches. Trouble concentrating. Forgetfulness. Decreased interest in sex. DIAGNOSIS In order to diagnose sleep apnea, your caregiver will perform a physical examination. Your caregiver may suggest that you take a home sleep test. Your caregiver may also recommend that you spend the night in a sleep lab. In the sleep lab, several monitors record information about your heart, lungs, and brain while you sleep. Your leg and arm movements and blood oxygen level are also recorded. TREATMENT The following actions may help to resolve mild sleep apnea: Sleeping on your side. Using a decongestant if you have nasal congestion. Avoiding the use of depressants, including alcohol, sedatives, and narcotics. Losing weight and modifying your diet if you are overweight. There also are devices and treatments to help open your airway: Oral appliances. These are custom-made mouthpieces that shift your lower jaw forward and slightly open your bite. This opens your airway. Devices that create positive airway pressure. This positive pressure splints your airway open to help you breathe better during sleep. The following devices create positive airway pressure: Continuous positive airway pressure (CPAP) device. The CPAP device creates a continuous level of air pressure with an air pump. The air is delivered to your airway through a mask while you sleep. This continuous pressure keeps your airway open. Nasal expiratory positive airway pressure (EPAP) device. The EPAP device creates positive air pressure as you exhale. The device consists of single-use valves, which are inserted into each nostril and held in place by adhesive. The valves create very little resistance when you inhale but create much more resistance when you exhale. That increased resistance creates the positive airway pressure. This positive pressure while you exhale keeps your airway open, making it easier to breath when you inhale again. Bilevel positive airway pressure (BPAP) device. The BPAP device is used mainly in patients with central sleep apnea. This device is similar to the CPAP device because it also uses an air pump to deliver continuous air pressure through a mask. However, with the BPAP machine, the pressure is set at two different levels. The pressure when you exhale is lower than the pressure when you inhale. Surgery. Typically, surgery is only done if you cannot comply with less invasive treatments or if the less invasive treatments do not improve your condition. Surgery involves removing excess tissue in your airway to create a wider passage way. Document Released: 07/31/2003 Document Revised: 2013 Document Reviewed: 12/16/2012 [facility] Patient Information 2 015 [employer]. This information is not intended to replace advice given to you by your health care provider. Make sure you discuss any questions you have with your health care provider. Extracted from:Title: [facility] Care Author: ABDOULAYE GUTIERREZ, DO Date: 12/07/23 1. E ncounter for general adult medical examination without abnormal findings Patient is a [age] Years Male w ith history of O SA p resenting today for annual exam. Discussed that patient is due for lab work, medications and prev med as documented. Patient currently feels well, denies any acute complaints. Does note chronic LBP ( Discussed below). Otherwise, ROS unremarkable. Physical exam is unremarkable. Patient is due for the following Preventative Medicine services, for which, patient has been ordered or referred as noted: - Labs (A1c, lipid panel, renal function panel, TSH) - Immunizations (Flu, COVID) - Colorectal Cancer Screening Otherwise, patient's screenings and vaccinations are UTD as documented. Patient may follow up in 6-12 months for continued PCM care. A total of 40 minutes was spent on this visit reviewing previous notes, counseling the patient on the listed diagnoses, reviewing/ordering tests, adjusting medications, and documenting the findings in this note. Ordered: Hepatitis A,B,C Panel Rapid HIV Screen 2. L ow back pain Patient with chronic low back pain for years. Denies any acute changes today. Notes occasional flares that require single dose of flexaril. No history of red flag symptoms, fevers, chills, night sweats, wt loss, recent infections, etc... Patient feels well today. Exam is unremarkable. Will provide PRN ibuprofen and flexaril for flares. Advised to use caution when taking muscle relaxers. Patient encouraged to return to clinic, present to UCC or ER for persistent worsening or development of other concerning symptoms. Patient cites understanding and agrees with plan of care. 3. O SA - Obstructive sleep apnea History of DARIAN, CPAP has been recalled, requests order for repeat. Will place DME referral and Referral to pulm for any adjustments. Defer further management to that service. Lina Gutierrez DO, Carter Duque, , [facility] Internal Medicine, [place] Extracted from:Title: Well Adult Author: JEAN-PAUL TORRES PA-C Date: 07/01/21 1. W ell adult C leared to participate in PAT. Physical exam benign. Medical hx reviewed. Follow up prn. Paperwork completed today and returned to patient before he left the clinic. Ordered: Office Visit Level 3 Est 95714 Available past medical records were reviewed in [facility], however may be incomplete from [facility] where previous EMR are located. Reviewed routine vs strict ER return precautions with patient regarding these medical concerns. ? Extracted from:Title: [facility] - R AOM Author: TOBIAS WHEATLEY MD Date: 05/14/21 1. O titis media of right ear A cute R ear otitis media. Non-toxic appearing. Recommend treatment with decongestant to enhance chance of drainage, as well as abx initiation. - Amox-clav 875 mg PO BID x5 days - Phenylephrine 10 mg PO q4h PRN. Patient advised this may be activiating. - No e/o systemic viral infection - R etiree given work note - Patient expressed understanding of above and agreement with plan of care. Ordered: amoxicillin-clavulanate, amoxicillin (as trihydrate) 1 tab(s), Oral, every 12 hr, X 5 days, # 10 tab(s), 0 total refill(s), Acute, 05/19/2021, 1 tab(s) Oral every 12 hr,x5 days, Pharmacy: [facility] [Not filled] phenylephrine, 1 tab(s), Oral, every 4 hr, PRN congestion, # 18 tab(s), 0 total refill(s), Acute, 1 tab(s) Oral every 4 hr,PRN:as needed for congestion, Pharmacy: [facility] [Not filled] Office Visit Level 4 Est 80338 2. E levated blood pressure reading without diagnosis of hypertension B P elevated today. Patient stated he has not had a problem with BP in the past, and had a work physical at a separate clinic last week and was told he had excellent blood pressure. 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 - Advised patient that goal BP is on average <140/90 - At this point, will monitor clinically to observe trend. No medication initiated today. Ordered: Office Visit Level 4 Est 50691 Extracted from:Title: [facility] Office Visit Note Author: CARROLL GILLIS, OD Date: 01/29/21 1. K eratoconus of both corneas Form fanny, B ased on conrneal topography- stable OU,per serial computerized topograpy, d iscovered later in life with pt's application for corneal refractive surgery. p er serial computerized topograpy. Pt still correctable to 20/20 OD/OS with spectacles, and spherical SCLs. Early presbyopia not yet visually significant to require MF Ordered: Computerized Corneal Topography Uni/Bi 15600 Determination Refractive State 51781 Ophthalmological Medical X[place] [address] 2. B ilateral myopia of eyes Hyperopic shift OU. Reducing minus power in CL/glasses, to avoid multifocal correction O U. Gave SV spec/CL Rx. Cautioned pt to use new trials before ordering to confirm [facility] satisfactory Ordered: Computerized Corneal Topography Uni/Bi 97852 Determination Refractive State 00914 Ophthalmological Medical Xm&[place] [address] Future Appointments Appointment Date: 04/10/2025 09:10:00 AM Scheduled Provider: JESSICA DORANTES MD Location: [address] [place] [address] Appointment Type: PC 24HR 03/30/2025 0006[facility] Functional Status Combined list of recent functional and cognitive assessments recorded at [facility] [employer] and [facility] (VA).VA Functional Hodgeman Measurement (FIM) Scale: 1 = Total Assistance (Subject = 0% +), 2 = Maximal Assistance (Subject = 25% +), 3 = Moderate Assistance (Subject = 50% +), 4 = Minimal Assistance (Subject = 75% +), 5 = Supervision, 6 = Modified Hodgeman (Device), 7 = Complete Hodgeman (Timely, Safely). Assessment Date/Time Source Assessment Type Assessment Skill Assessment Score Assessment Details No data available for this section
[2025-03-30 06:26] VITALS: BP 110/83; PULSE 71; RESP 17; TEMP 36.1; O2SAT 99; BMI 32.2
[2025-03-30] MEDS: LACTATED RINGERS 1,000 ML 150 ML IV CONT (06:36)
--- NOTE | 2025-03-30 07:18 | P.PNAN_ITS ---
Anes - Initial Pre Proc Eval Procedure: Operation Date: 03/30/25 07:30 Proposed Procedures p EGD & Screening Colonoscopy - Mike Harris MD Date/Time: 03/30/25 07:18 Surgeon: Mike Harris MD Pre Op Diagnosis: Dysphagia, unspecified, Screening Patient Data Age: 49 Gender: M Height: 1.75 m Weight: 99.1 kg Last Vital Signs Temp 36.1 C L 03/30/25 06:26 Pulse 71 03/30/25 06:26 Resp 17 03/30/25 06:26 BP 110/83 03/30/25 06:26 Pulse Ox 99 03/30/25 06:26 O2 Del Method Room Air 03/30/25 06:26 Allergies Allergy/AdvReac Type Severity Reaction Status Date / Time banana Allergy Mild Swelling Verified 03/30/25 06:24 of Lip/Tongue/Throat Home Medications ?Medication ?Instructions ?Recorded ?Confirmed ?Type omeprazole 40 mg capsule,delayed 40 mg PO DAILY #30 caps 03/21/25 03/28/25 Rx release Patient hx anesthesia problems: none Family hx anesthesia problems: none Results Review: All pre-operative results and documents have been reviewed as part of the pre- operative evaluation. [facility] Social History Social History Years smoked: 4 Smoking status: Former smoker Alcohol intake: current Drinks per week: 3 Substance use: never Substance use type: does not use Living arrangements: with family Spiritual care concerns: No Anes - Eval Final PreProcedure Day of Procedure 03/30/25 07:18 Patient weight: obese Heart: regular rate and rhythm Lungs: clear to auscultation Airway: Mallampati scale class II Neurological: alert and oriented Last oral intake: >/= 8 hours ASA classification: III Emergent: no Anesthetic plan: proceed Anesthesia type and monitoring: general GIVS and standard monitoring Results Review: All pre-operative results and documents have been reviewed as part of the pre- operative evaluation. Informed Consent: The patient's anesthetic plan and its attendant risks and benefits were discussed with the patient/family/POA. Questions were solicited and answers provided to the satisfaction of the patient/family/POA.
--- NOTE | 2025-03-30 07:25 | WPDHPUPDATE1 ---
History and Physical Update Update Date/Time: 03/30/25 07:25 History and Physical has been reviewed, including an updated exam of the patient. There are NO changes in the patient's condition. Risks, benefits, and alternatives have been discussed and questions answered. Patient agrees to proceed with procedure.
--- NOTE | 2025-03-30 07:39 | SUR.OPER ---
EGD [id number]. Colonoscopy start time 0742.
--- NOTE | 2025-03-30 07:49 | S_PTH ---
PATIENT: Bishop Santamaria LOC: ROBEL Alvarado#:[id number] AGE/SX: 49/M ROOM: RE03/30/[address]: Mike Harris MD : 1975 BED: DIS: 03/30/2025 SPEC #: [id number] RECD: 03/30/25 09:12 STATUS: CM RESai #: [id number] SONDRA: 03/30/25 07:[address]: Mike Harris DEPT: [facility] Surgical RECD BY: Alison Beckman ENTERED: 03/30/25 09:14 SP TYPE: Surgical OTHR DR: SHIV [facility] Tissues: A - Gastric Biopsy B - Esophageal Biopsy C - Esophageal Biopsy D - Colon Polypectomy E - Colon Polypectomy Procedures: Hematoxylin and Eosin Stain Gross and Microscopic Level 4
[2025-03-30 07:51] VITALS: BP 122/72; PULSE 58; RESP 27; O2SAT 97
[2025-03-30 08:01] VITALS: BP 122/84; PULSE 60; RESP 19; O2SAT 99
[2025-03-30 08:11] VITALS: BP 116/83; PULSE 55; RESP 17; O2SAT 100
== END 2025-03-30 08:21 | disposition home or self-care (01) ==
PROVIDERS: Referring Provider Internal Medicine Gastroenterology; Visit Provider Internal Medicine Gastroenterology
PROC: 0DJ08ZZ Inspection of Upper Intestinal Tract, Via Natural or Artificial Opening Endoscopic (ICD-10-PCS; CPT 45378; principal; 2025-03-30 07:30)
DX: Z12.11 Encounter for screening for malignant neoplasm of colon (principal); K63.5 Polyp of colon; K21.00 Gastro-esophageal reflux disease with esophagitis, without bleeding; G47.33 Obstructive sleep apnea (adult) (pediatric); E66.9 Obesity, unspecified; Z68.32 Body mass index [BMI] 32.0-32.9, adult; Z87.891 Personal history of nicotine dependence
CPT/HCPCS: 43239; 45385; 88305; J2003; J2704; J7120